=== PATIENT | male | born 1945 | race Caucasian/White ===

== ENCOUNTER 2019-10-06 20:35 | Observation (INO) | payer MEDICARE, OTHER, SELFPAY ==
--- NOTE | 2019-10-06 | DI.ECHO.S_ITS ---
[facility] +---------+ : : [address] : [address] : : : : [id number] : : : : Phone: [phone] Echocardiogram Report + + :Name: SHAUNA VILLALBA Study Date: 10/07/2019 Height: 69 in : :[facility] Weight: 195 lb : : Gender: Male BSA: 2.0 m2 : :: 1945 Age: 74 yrs BP: 147/90 mmHg: :Reason For Study: CVA : : Performed By: Ijeoma Menjivar : :Referring: TRIP AUGUSTIN : + + Interpretation Summary The left ventricle is normal in size, wall thickness, and systolic function without any focal wall motion abnormalities with the ejection fraction visually estimated to be 65-70%. Diastolic parameters suggest probable normal left ventricular diastolic function and normal filling pressures. The right ventricle is borderline dilated and right ventricular systolic function is normal. Pulmonary artery pressures cannot be estimated because of the lack of a measurable TR jet velocity but the IVC suggests a CVP of around 8 mmHg. The left atrium is mildly dilated while right atrial size is normal. The interatrial septum is intact with no Doppler evidence for an atrial septal defect and injection of contrast documented no interatrial shunt. There is no significant valvular heart disease. Procedure: A two-dimensional transthoracic echocardiogram with color flow and Doppler was performed. The study quality was technically adequate. There is no prior echocardiogram noted for this patient. The patient was in normal sinus rhythm during the exam. Left Ventricle: The left ventricle is normal in size, wall thickness, and systolic function without any focal wall motion abnormalities. The ejection fraction is estimated to be 65-70%. Diastolic parameters suggest probable normal left ventricular diastolic function and normal filling pressures. Right Ventricle: The right ventricle is borderline dilated. The right ventricular systolic function is normal. Atria: The left atrium is mildly dilated. Right atrial size is normal. The interatrial septum is intact with no evidence for an atrial septal defect. Injection of contrast documented no interatrial shunt. Mitral Valve: The mitral valve is grossly normal. There is no mitral regurgitation noted. Aortic Valve: The aortic valve is trileaflet. The aortic valve opens well. The peak aortic velocity is 1.6 m/sec. There is no aortic valve stenosis. No aortic regurgitation is present. Tricuspid Valve: The tricuspid valve is not well visualized, but is grossly normal. There is a trace or physiologic amount of tricuspid regurgitation. Pulmonary artery pressures cannot be estimated because of the lack of a measurable TR jet velocity but the IVC suggests a CVP of around 8 mmHg. Pulmonic Valve: The pulmonic valve is not well seen, but is grossly normal. There is no pulmonic valvular regurgitation. There is no significant valvular heart disease. Great Vessels: The aortic root is mildly dilated. The ascending aorta is mildly enlarged. The aortic arch is normal in size. The IVC is dilated (diameter is greater than 2.1 cm) yet it collapses greater than 50% with a sniff. This suggests a right atrial pressure of 8 mm Hg. Pericardium/ Pleura There is no pericardial effusion. There is no pleural effusion. MMode/2D Measurements & Calculations LVIDd: 5.1 cm Ao root diam: 3.9 cm LVIDs: 2.8 cm Aortic Jxn: 3.2 cm FS: 44.8 % asc Aorta Diam: 3.6 cm IVSd: 0.84 cm Ao Arch Diam (Prox Trans): 2.9 cm LVPWd: 0.99 cm LV ragland. diameter/BSA (cm/m^2): 2.5 LV sys. diameter/BSA (cm/m^2): 1.4 LA dimension: 3.3 cm RA long axis: 5.4 cm LA A2 area: 22.5 cm2 RA area: 19.5 cm2 LA A4 area: 23.7 cm2 RA vol: 60.4 ml LA length (vol): 5.4 cm RA : 29.5 ml/m2 LA vol: 83.8 ml IVC diam: 2.2 cm LA vol index: 41.0 ml/m2 Doppler Measurements & Calculations Ao V2 max: 161.3 cm/sec MV E max ricky: 117.2 cm/sec Ao V2 mean: 116.9 cm/sec MV A max ricky: 118.0 cm/sec Ao max P.4 mmHg MV E/A: 0.99 Ao mean P.0 mmHg Med Peak E' Ricky: 10.0 cm/sec Ao V2 VTI: 30.5 cm E/E' med: 11.7 Lat Peak E' Ricky: 9.1 cm/sec E/E' lat: 12.9 E/e' average: 12.3 MV dec time: 0.19 sec MV P1/2t: 55.2 msec PA V2 max: 87.3 cm/sec MV P1/2t max ricky: 115.8 cm/sec PA V2 mean: 61.1 cm/sec MVA(P1/2t): 4.0 cm2 PA mean P.7 mmHg PA Accel Time: 0.12 sec Reading Physician:BEVERLY
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
[2019-10-06 20:46] VITALS: BP 132/85; PULSE 102; RESP 15; TEMP 38.2; O2SAT 95
[2019-10-06 20:53] LABS: Add Manual Diff / Slide Review NO; Basophils Absolute Auto 0 /uL (0-100); Basophils Percent Auto 0.3 % (0-2); Eosinophils Absolute Auto 100 /uL (0-450); Eosinophils Percent Auto 0.9 % (2-4); Hematocrit 44.4 % (41-53); Hemoglobin 15.6 g/dL (13.5-17.5); Lymphocytes Absolute Auto 400 /uL (1100-4500); Lymphocytes Percent Auto 6.1 % (25-40); Mean Corpuscular HGB Conc 35.2 % (30-36); Mean Corpuscular Hemoglobin 32.9 PG (26-34); Mean Corpuscular Volume 93.5 fL (80-100); Monocytes Absolute Auto 400 /uL (0-900); Monocytes Percent Auto 6.9 % (3-14); Neutrophils Absolute Auto 5200 /uL (1500-7000); Neutrophils Percent Auto 85.8 % (50-75); Platelet Count 164 X10^3/uL (150-400); Red Blood Cell Count 4.75 X10^6/uL (4.5-5.9); Red Cell Distribution Width 13.4 % (11.6-14.8); White Blood Cell Count 6.1 X10^3/uL (4.5-11.0)
[2019-10-06 20:59] LABS: INR 1.1 (0.9-1.3); Prothrombin Time 12.4 SECONDS (10.1-12.7)
[2019-10-06 21:01] LABS: HEMOLYSIS < 15 (0-50)
[2019-10-06 21:02] LABS: PTT Partial Thromboplastin Tim 29 SECONDS (26.4-36.2)
[2019-10-06 21:05] LABS: Alanine Aminotransferase 24 IU/L (<50); Albumin 4.3 g/dL (3.5-5.0); Albumin Globulin Ratio 1.6 (1.0-2.8); Alkaline Phosphatase 64 U/L (38-126); Aspartate Aminotransferase 53 IU/L (17-59); BUN Creatinine Ratio 12.1 (6-22); Bilirubin Total 0.8 mg/dL (0.2-1.3); Blood Urea Nitrogen 17 mg/dL (9-20); Calcium 9.1 mg/dL (8.4-10.2); Carbon Dioxide 27 mmol/L (22-32); Chloride 100 mmol/L (98-107); Estimated Glomerular Filt Rate 49.3 mL/min (>60); Globulin 2.7 g/dL (1.7-4.1); Glucose 118 mg/dL (80-110); Lipase 96 U/L (23-300); Sodium 135 mmol/L (137-145)
[2019-10-06 21:06] LABS: Lactate (Lactic Acid) 1.5 mmol/L (0.7-2.1)
[2019-10-06 21:19] LABS: Procalcitonin 0.09 ng/mL (<0.5)
[2019-10-06 21:20] VITALS: BP 153/82; PULSE 91; RESP 12; O2SAT 94
[2019-10-06 21:20] LABS: Troponin I 0.023 ng/mL (0.01-0.034)
[2019-10-06 21:22] LABS: Acetaminophen < 10 ug/mL (10-30); Ethanol (ETOH) < 10 mg/dL; Salicylate < 1.0 mg/dL (<20)
[2019-10-06 21:35] LABS: Ammonia (NH3) < 9.0 umol/L (9-30)
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
[2019-10-06 22:09] VITALS: BP 162/84; PULSE 94; RESP 27; O2SAT 94
[2019-10-06 22:30] VITALS: BP 160/83; PULSE 101; RESP 22; O2SAT 99
--- NOTE | 2019-10-06 22:37 | PC.NURSE ---
Went through the pts belongings with him to make sure that we had all of it together. He has: a wallet, a separate card frederick, a set of keys, a medicine organizer, and a jacket as well as plaid sweater. Pt is wearing a yellow metal ring on his left ring finger. Pt states that he had a phone with him but neither him nor I could find one.
--- NOTE | 2019-10-06 23:26 | PC.NURSE ---
Addendum entered by Usha Quinteros R.N. 10/06/19 23:28: Pt Sarah, called at [phone] [facility] Thursday. Original Note: Rn attempted to reconcile medications pt unable to recall medications and dosages. Pt called and she is unaware of his medication names and dosages.
[2019-10-06 23:30] VITALS: BP 174/90; PULSE 106; RESP 20; TEMP 37.2; O2SAT 100
--- NOTE | 2019-10-06 23:48 | DI.MRI.S_ITS ---
PROCEDURE: MR STROKE Pre- and post-contrast brain MRI, non-contrast brain MR angiogram, pre- and postcontrast neck MR angiogram INDICATIONS: Altered mental status, rule out CVA TECHNIQUE: Brain: Noncontrast axial T1 spin echo, axial T2 fast spin echo, sagittal and axial FLAIR, coronal T2 fast spin echo, axial gradient echo, axial diffusion and ADC through the brain. After the administration of contrast, axial 3D VIBE of the cranial vasculature and brain. Brain MRA: Non-contrast 3-D time of flight MR angiogram, with multiple axwvqeu-viwkimvip-whqdphipbz (MIP) reformats performed. Neck MRA: Axial and sagittal TruFISP through the neck. Coronal dynamic MR angiogram during administration of contrast in the arterial and venous phases, with 3-dimenstional oihuekc-atwwxckce-bkyagixwdb (MIP) reformats constructed from subtraction images. COMPARISON: None. FINDINGS: Image quality: Excellent. BRAIN: CSF spaces: Ventricles are normal in size and shape. Basal cisterns are patent. No extra-axial fluid collections. Brain: No intracranial bleeds or mass effects. Pinto-white matter interface is normal. Diffusion weighted images show no acute ischemic insults. Brainstem appears normal. Normal intravascular flow voids are present. Mild volume loss. No abnormal intracranial enhancement. Skull and face: Calvarial marrow signal is normal. Orbits appear normal. Sinuses: Mild bilateral maxillary, ethmoid, frontal, and sphenoid sinus mucosal thickening. BRAIN MR ANGIOGRAM: Anterior circulation: Intracranial internal carotid arteries are normal in size and enhancement. The flow within the paired anterior cerebral arteries is normal and symmetric. The flow within the middle cerebral arteries is normal and symmetric. The anterior communicating artery is seen. No stenoses, occlusions, or aneurysms. Posterior circulation: The visualized portions of the vertebral arteries demonstrate normal caliber, and join to form a normal appearing basilar artery. Near origin of right posterior cerebral artery. The flow within the posterior cerebral arteries is normal and symmetric. No stenoses, occlusions, or aneurysms. NECK MR ANGIOGRAM: Carotids: Great vessels demonstrate a conventional anatomy as they arise from the aortic arch. The origins of the common carotid arteries appear patent. The calibers and courses of both common carotid arteries are normal. The bifurcation regions appear normal bilaterally. The internal carotid arteries demonstrate normal course and caliber. Posterior circulation: The origins of the vertebral arteries appear patent. More superior portions of both vertebral arteries demonstrate normal course and caliber, and join to form a normal appearing basilar artery. Miscellaneous: Subclavian arteries appear patent. Pre-contrast images through the neck show no soft tissue abnormalities. IMPRESSION: BRAIN MRI: 1. No acute process. No recent infarct. 2. Sinus disease. BRAIN MR ANGIOGRAM: Negative cerebral angiography. NECK MR ANGIOGRAM: 1. No significant stenosis in the internal carotid arteries. 2. No significant stenosis in the vertebral arteries. Dictated by: Melani Sood M.D. on 10/07/2019 at 11:43 Approved by: Melani Sood M.D. on 10/07/2019 at 12:00
[2019-10-07] VITALS (9 sets, daily range): BP systolic 104–157; BP diastolic 57–90; PULSE 77–96; RESP 13–22; TEMP 36.8–38.5; O2SAT 92–99; BMI 29.8
--- NOTE | 2019-10-07 | PC.NURSE ---
PT hiram Hollowayjuli contact phone number [phone].
[2019-10-07] MEDS: SODIUM CHLORIDE 0.9% 1,000 ML 75 ML IV ×2 (01:19→18:34)
[2019-10-07] MEDS: ASPIRIN EC 325 MG TABLET PO (01:21)
--- NOTE | 2019-10-07 01:38 | PC.ADMIT ---
Addendum entered by Mariya Eddy R.N. 10/07/19 06:54: Bladder scanned again for estimated 468ml, then voided 100ml. called, patient not confused at baseline, came down with cold around Thursday and took over the counter cold medication yesterday. Displayed some confusion yesterday before he left [place] after 1515 after a nap. reports no walker or cane at baseline, has had some instability due to Parkinson's Shuffle but has not required assisting device. Addendum entered by Mariya Eddy R.N. 10/07/19 03:33: Patient was attempting to exit the bed, stated I need to use the bathroom, gave patient a urinal and he voided 30ml. Bladder scan showed estimated 300ml retained. Will notify hospitalist. Original Note: [id number] Admission Note: The patient,Radu Ryan,74 y/o, was given written information regarding hospital policies, unit procedures and contact persons. Patient's smoking status: Never smoker. Vital Signs - 8 hr 10/06/19 20:46 10/06/19 21:20 10/06/19 22:09 Temperature 100.7 F H Pulse Rate 102 H 91 H 94 H Respiratory Rate 15 12 27 H Blood Pressure 132/85 Blood Pressure [Left Arm] 153/82 H 162/84 H Pulse Oximetry 95 94 94 10/06/19 22:30 10/06/19 23:30 10/07/19 00:00 Temperature 99.0 F Pulse Rate 101 H 106 H 96 H Respiratory Rate 22 20 13 Blood Pressure Blood Pressure [Left Arm] 160/83 H 174/90 H 157/76 H Pulse Oximetry 99 100 99 10/07/19 00:35 Temperature 101.3 F H Pulse Rate 96 H Respiratory Rate 18 Blood Pressure 150/77 H Blood Pressure [Left Arm] Pulse Oximetry 97 Patient arrived on floor from ED by stretcher accompanied by MISSILE TRACKING TECHNICIAN. Transferred to bed via slider board. Patient is alert to self and that he's in the hospital but not which hospital or why but does recall falling yesterday. Patients has difficulty responding to questions in a linear fashion, when asked for a code word patient started saying five trailed off, when asked if he wanted it to be just one number he responded yes like 'ph' um and then asked is that a word?. When asked about diet at home, patient stated I eat a lot of blueberries. My son's have different surnames. All kinds of berries really. Asked patient if he always has difficulty with finding words, patient denies that this is his baseline. Patient appeared to fall asleep during admission but would arouse easily. Patient denied pain, nausea, vomiting, has a dry cough and wheezing in anterior and posterior upper lobe specifically when laying on his side. Patient's belongings were vouchered and put in the safe, a small case of loose medications was labeled and put in the night pharmacy. Patient is a high fall risk due to recent fall, mentation, and weakness, bed alarm in on and functioning, demonstrated use of call light and patient has used appropriately, patient within view of nursing station.
[2019-10-07] MEDS: CARBIDOPA-LEVODOPA 25/100 TABLET 1 EACH PO ×2 (02:16→18:07)
--- NOTE | 2019-10-07 02:32 | PM.HP.1 ---
History of Present Illness History of Present Illness Date Patient Seen: 10/06/19 Time Patient Seen: 22:50 Chief complaint: Confusion, LKW [id number] Narrative: Mr. Radu Garvin this 74-year-old right-handed male with a history significant for parkinsonism hypertension and hypogonadism that presents to the hospital by EMS with altered mental status. The patient is a poor historian and unable to effectively relate history of events or recall information. Reportedly the patient left his home in Thursday on [facility] this morning. From conversation by the ER provider with the patient's the patient was more confused this morning when he left home to visit his son in [place]. The patient states he was driving around looking at houses but did not realize he was in [place]. He got out of his car with his dog who pulled him over falling to the ground, bystanders called EMS. Patient denies hitting his head or loss of consciousness, no neck or back pain. The patient has difficulty describing any of the events of today and may remember 1 facet but is unable to recall further. When asked about getting on the very he asks ?was that today??. Has difficulty with dates and times and is unable to recall today's date. The patient does complain of a bitemporal headache Dona states ?is not bad?. He reports no visual changes, no dizziness, no ataxia but adds that he felt stiff and his feet felt like cement. He has had no nausea vomiting and denies diaphoresis. He recalls no recent illness and denies fevers or chills. He denies complaints of chest pain or palpitations, shortness of breath cough or wheezing. Has no abdominal pain, changes in bowel or bladder habits. Upon arrival the ER the patient is febrile with temperature of 100.7?, tachycardic at 102, blood pressure 132/85, respirations 15 saturating 95%. The patient was evaluated with a CT scan of the head which finds no acute intracranial pathology have finds chronic microvascular ischemic changes. He had a chest x-ray taken which was negative with no evidence of pneumonia. On laboratory analysis he has white count of 6.1, hemoglobin of 15.6 and hematocrit of 44.4 with platelets 164. He has lactic acid of 1.5 and a troponin of 0.023. Electrolytes are within normal limits however he does have a BUN of 17 and a creatinine of 1.4 and nonfasting glucose of 118. His LFTs with normal limits as is his lipase at 96 and ammonia less than 0.9. Tox screen is negative for salicylates Tylenol or alcohol. The patient is admitted to the Medicine service for fever with unknown source, altered mental status, possible CVA. Patient History Medical History (Updated 10/07/19 @ 03:09 by MARGARITA Juarez) Hypertension (Acute) Hypogonadism (Acute) Parkinsons disease (Acute) Surgical History (Updated 10/07/19 @ 03:09 by MARGARITA Juarez) History of tonsillectomy (Acute) Family & Social History Family History (Updated 10/07/19 @ 03:10 by MARGARITA Juarez) Father Hypertension Stroke Mother Cancer Brother Asthma Social History: household members spouse Prior Living Arrangements House Safety & Behavioral: Feels Safe in Current Yes Environment Been Physically Hurt or No Threatened By a Person Suicidal Ideation Description None Suicide Plan Description No Plan Tobacco & Substance use: Smoking Status Never smoker alcohol intake frequency a few times a month Substance Use Type does not use Comment: The patient lives in a single family home on [facility] with his . He finds a history is father having hypertension and stroke in his mother having a cancer the blood and brother with asthma. Smoking: The patient denies ever using tobacco products. Alcohol: Patient endorses drinking alcohol approximately once per week. Substance use: Patient denies recreation pharmaceuticals, herbal or cannabis products. Advanced directives: The patient is unclear as to advanced directives. Upon clarification he states his desire to be FULL CODE a has to be surrogate decision maker. Meds Home Medications and Allergies Home Medications Medication Instructions Recorded Confirmed Type CHOLECALCIFEROL (VITAMIN D3) 5,000 iu PO Q DAY #0 08/06/11 History (VITAMIN D) Coenzyme Q10 (#COQ(10)10) 100 mg PO Q DAY #0 08/06/11 History MELATONIN (#MELATONIN) 1 mg PO Q DAY #0 08/06/11 History PRASTERONE (DHEA) (#DHEA) 40 mg PO Q DAY #0 08/06/11 History Pregnenolone (#PREGNENOLONE) 50 mg PO Q DAY #0 08/06/11 History TESTOSTERONE (#TESTOSTERONE) 150 mg TOPICAL Q DAY #0 08/06/11 History [[facility] ESSENTIAL] BID #0 08/06/11 History [[facility] MENS FORMULA] Q DAY #0 08/06/11 History anastrozole 1 mg PO QDAY #0 08/06/11 History carbidopa-levodopa 1 tab PO BEDTIME 10/07/19 10/07/19 History carbidopa-levodopa See Rx Instructions .ROUTE .COMPLEX 10/07/19 10/07/19 History levothyroxine 50 mcg PO DAILY 10/07/19 10/07/19 History pramipexole 0.5 mg PO TID 10/07/19 10/07/19 History Allergies Allergy/AdvReac Type Severity Reaction Status Date / Time No Known Drug Allergies Allergy Verified 10/06/19 20:46 Review of Systems Review of Systems ROS Unobtainable: All systems reviewed & are unremarkable except as noted in HPI and below Exam Vital Signs (past 8 hours): - 10/06/19 20:46 10/06/19 21:20 10/06/19 22:09 Temperature 100.7 F H Pulse Rate 102 H 91 H 94 H Respiratory Rate 15 12 27 H Blood Pressure 132/85 Blood Pressure [Left Arm] 153/82 H 162/84 H Pulse Oximetry 95 94 94 10/06/19 22:30 10/06/19 23:30 10/07/19 00:00 Temperature 99.0 F Pulse Rate 101 H 106 H 96 H Respiratory Rate 22 20 13 Blood Pressure Blood Pressure [Left Arm] 160/83 H 174/90 H 157/76 H Pulse Oximetry 99 100 99 10/07/19 00:35 Temperature 101.3 F H Pulse Rate 96 H Respiratory Rate 18 Blood Pressure 150/77 H Blood Pressure [Left Arm] Pulse Oximetry 97 Oxygen Delivery Method Room Air Oxygen Flow Rate 0 Narrative Exam Narrative: GENERAL APPEARANCE: well developed, well nourished, restless and somewhat uncomfortable appearing. HEENT: Atraumatic, symmetrical facies, PERRLA, conjunctiva clear, no ptosis, EOMs intact, staccato like eye movement in all axes, no sinus tenderness to percussion, no rhinorrhea, mucous membranes are moist and pink without lesions or exudate. NECK/THYROID: neck supple, no JVD, no carotid bruit, no thyromegaly, trachea midline. LYMPH NODES: no cervical or supraclavicular lymphadenopathy. SKIN: Anthon, warm and dry, no suspicious lesions, no rashes, ulcerations or petechiae. HEART: regular rate and rhythm, S1-S2, 1/6 systolic murmur, brisk capillary refill, 2+ edema right leg, trace to 1+ edema left leg. LUNGS: clear to auscultation bilaterally, no coarseness crackles or wheezing, dry nonproductive cough present on deep inspiration CHEST: Symmetrical movement, no accessory muscle use, no pain to AP and lateral compression. ABDOMEN: Soft, round, no abdominal tenderness, no guarding or peritoneal signs, no organomegaly, no flank or suprapubic tenderness, active bowel tones. EXTREMITIES: Tremors of all extremities, strength is 5/5 and symmetrical, no extremity drift on exam, no deformities or joint effusions. NEUROLOGIC: Awake alert and oriented to person confused to place and time, impaired recall, no facial drooping cranial nerves II-XII grossly intact, sensation intact to light touch without extinction, patient will initially respond to question and trail off, inattention. PSYCH: Non linear thought process, cooperative, appropriate with stable behavior Objective Labs Result Diagrams: 10/06/19 20:40 10/06/19 20:40 Labs: Laboratory Results - last 24 hr 10/06/19 10/06/19 10/06/19 20:40 20:40 20:40 WBC 6.1 RBC 4.75 Hgb 15.6 Hct 44.4 MCV 93.5 MCH 32.9 MCHC 35.2 RDW 13.4 Plt Count 164 Neut % (Auto) 85.8 H Lymph % (Auto) 6.1 L [place] % (Auto) 6.9 Eos % (Auto) 0.9 L Baso % (Auto) 0.3 Neut # (Auto) 5200 Lymph # (Auto) 400 L [place] # (Auto) 400 Eos # (Auto) 100 Baso # (Auto) 0 PT 12.4 INR 1.1 APTT 29 Sodium 135 L Potassium 4.0 Chloride 100 Carbon Dioxide 27 BUN 17 Creatinine 1.40 H Estimated GFR 49.3 L BUN/Creatinine Ratio 12.1 Glucose 118 H Lactate Calcium 9.1 Total Bilirubin 0.8 AST 53 ALT 24 Alkaline Phosphatase 64 Ammonia Troponin I 0.023 Total Protein 7.0 Albumin 4.3 Globulin 2.7 Albumin/Globulin Ratio 1.6 Lipase 96 Procalcitonin TSH Salicylates < 1.0 Acetaminophen < 10 L Ethyl Alcohol < 10 10/06/19 10/06/19 10/06/19 20:40 20:40 20:40 WBC RBC Hgb Hct MCV MCH MCHC RDW Plt Count Neut % (Auto) Lymph % (Auto) [place] % (Auto) Eos % (Auto) Baso % (Auto) Neut # (Auto) Lymph # (Auto) [place] # (Auto) Eos # (Auto) Baso # (Auto) PT INR APTT Sodium Potassium Chloride Carbon Dioxide BUN Creatinine Estimated GFR BUN/Creatinine Ratio Glucose Lactate 1.5 Calcium Total Bilirubin AST ALT Alkaline Phosphatase Ammonia < 9.0 L Troponin I Total Protein Albumin Globulin Albumin/Globulin Ratio Lipase Procalcitonin 0.09 TSH Salicylates Acetaminophen Ethyl Alcohol 10/06/19 20:40 WBC RBC Hgb Hct MCV MCH MCHC RDW Plt Count Neut % (Auto) Lymph % (Auto) [place] % (Auto) Eos % (Auto) Baso % (Auto) Neut # (Auto) Lymph # (Auto) [place] # (Auto) Eos # (Auto) Baso # (Auto) PT INR APTT Sodium Potassium Chloride Carbon Dioxide BUN Creatinine Estimated GFR BUN/Creatinine Ratio Glucose Lactate Calcium Total Bilirubin AST ALT Alkaline Phosphatase Ammonia Troponin I Total Protein Albumin Globulin Albumin/Globulin Ratio Lipase Procalcitonin TSH 0.80 Salicylates Acetaminophen Ethyl Alcohol Assessment & Plan Assessment & Plan narrative: This is a 74-year-old male patient who is independent at baseline and presents today with altered mental status confusion and apparent amnesic to events earlier today. 1. Acute metabolic encephalopathy, possible CVA, present on admission, active -per ER providers conversation with the patient's the patient was smoke confused on departing his home today. On the ER assessment last known normal was approximately 4:30 p.m. -patient is unable to recall events of earlier today and does not recall getting on the [place] from [facility] to [place]. -CT of the head is negative for acute intracranial processes, finding of chronic microvascular ischemic changes. -patient does complain of bitemporal headache without nausea vomiting, no visual changes, no hemiparesis or ataxia. -ordered aspirin 325 mg now and 81 mg daily. -ordered lipid panel, atorvastatin 20 mg daily -will obtain MRI stroke protocol in the morning. -ordered echocardiogram. 2. Parkinson's disease, chronic, present on admission, active -patient does present with cognitive impairment but per report had not developed dementia secondary to his Parkinson's. -patient is tremulous in all extremities but is able to complete rwjoim-np-fchd and lnvn-bj-hhdz maneuvers. -patient has his medications with him in a pill minder box. Will send to pharmacy in the morning for identification and clarification of dosages -clarification of patient's med regimen was obtain by nursing in the ER, will continue patient's carbidopa levodopa and pramipexole per his home regimen as identified and will request medical records from [facility]. -patient states his neurologist is Carol Ann Phillips at [facility] in [place]. Will contact for records for the 3 last visits. 3. Acute upper respiratory infection, present on admission, active -patient with fever on admission 100.7 and later on the floor 101.3. -patient complains of a cough but denies wheezing or shortness of breath. Reports no fevers or chills. -will obtain respiratory PCR. -Tylenol as needed for fever 4. Possible benign prostatic hypertrophy, active -as ER staff was seeking to clarified patient medications identified doxazosin 8 mg has a home medication. -will obtain medical records from [facility] in attempt to clarify patient's medications. -patient attempted to void, produced only 30 cc. Bladder scan finds a residual approximately 300 cc. -will monitor urination, straight cath as necessary, clarify medications. The patient is admitted to the hospital due to severity of her symptoms, risk of complications and adverse events. The patient is admitted as observation with expected length of stay to be less than 2 midnights. Time Spent With Patient Time with patient: Greater than 35 minutes Scores GCS Rosaura coma scale eye opening: Spontaneous [place] coma scale verbal response: Confused [place] coma scale motor response: Obey commands Rosaura coma scale total score: 14 ABCD2 Age >= 60 years: yes Initial BP. Either SBP >= 140 or DBP >= 90.: no Clinical features of the TIA: other symptoms Duration of symptoms: >= 60 minutes History of diabetes: no ABCD2 Score: 3 NIHSS Level of Conciousness: Alert, keenly responsive Ask month/age: Answers one question correctly, intubated follow commands Open/close eyes, close hand: Performs both tasks correctly Best gaze horizontal: Normal Visual dodson: No visual loss Facial palsy: Normal symetrical movement Left arm drift: No drift for full 10 sec Right arm drift: No drift for full 10 sec Left leg drift: No drift for full 5 sec Right leg drift: No drift for full 5 sec Limb ataxia: Absent Sensory on face/arms/legs: Normal, no sensory loss Best language: No aphasia, normal Dysarthria: Normal Extinction or inattention: Visual, tactile, auditory, spacial or personal inattention to stimuli Total NIH Stroke scale score: 2 Quality VTE Deep Vein Thrombosis/Pulmonary Embolism Present on Admission: No
[2019-10-07 03:37] LABS: Bacteria Urine None Seen
[2019-10-07 03:38] LABS: Appearance Urine UA CLEAR; Bilirubin Urine UA NEGATIVE (NEGATIVE); Color Urine UA YELLOW; Glucose Urine UA NEGATIVE (Negative); Ketones Urine UA TRACE (NEGATIVE); Leukocyte Esterase Urine UA NEGATIVE (NEGATIVE); Nitrite Urine UA NEGATIVE (Negative); Occult Blood Urine UA 3+ (Negative); Protein Urine UA TRACE (Negative); Specific Gravity Urine UA 1.015 (1.000-1.035); pH Urine UA 7.5 (4.5-8.0)
[2019-10-07 03:48] LABS: Culture Indicated Urine Cult Not Indicated; RBC Urine 30-100/HPF (0-5/HPF); Sperm Urine OCCASIONAL; Squamous Epithelial Cell Urine 0-1 /HPF (0-5/HPF); WBC Urine 0-1/HPF (0-5/HPF)
[2019-10-07] MEDS: LEVOTHYROXINE 50 MCG TABLET PO (05:48)
[2019-10-07 05:50] LABS: BUN Creatinine Ratio 14.2 (6-22); Blood Urea Nitrogen 17 mg/dL (9-20); Calcium 8.4 mg/dL (8.4-10.2); Carbon Dioxide 24 mmol/L (22-32); Chloride 100 mmol/L (98-107); Cholesterol 150 mg/dL (140-199); Estimated Glomerular Filt Rate 58.9 mL/min (>60); Glucose 108 mg/dL (80-110); HDL Cholesterol 42 mg/dL (40-60); HEMOLYSIS 23 (0-50); LDL Cholesterol Calculated 98 mg/dL (<100); Magnesium 1.7 mg/dL (1.6-2.3); Sodium 132 mmol/L (137-145); Triglycerides 50 mg/dL (35-150)
[2019-10-07 06:10] LABS: Add Manual Diff / Slide Review NO; Basophils Absolute Auto 100 /uL (0-100); Basophils Percent Auto 0.9 % (0-2); Eosinophils Absolute Auto 0 /uL (0-450); Eosinophils Percent Auto 0.2 % (2-4); Hematocrit 42.9 % (41-53); Hemoglobin 15.2 g/dL (13.5-17.5); Lymphocytes Absolute Auto 600 /uL (1100-4500); Lymphocytes Percent Auto 10.5 % (25-40); Mean Corpuscular HGB Conc 35.5 % (30-36); Mean Corpuscular Hemoglobin 33.1 PG (26-34); Mean Corpuscular Volume 93.2 fL (80-100); Monocytes Absolute Auto 500 /uL (0-900); Monocytes Percent Auto 8.6 % (3-14); Neutrophils Absolute Auto 4600 /uL (1500-7000); Neutrophils Percent Auto 79.8 % (50-75); Platelet Count 146 X10^3/uL (150-400); Red Blood Cell Count 4.61 X10^6/uL (4.5-5.9); White Blood Cell Count 5.8 X10^3/uL (4.5-11.0)
[2019-10-07 06:40] LABS: Troponin I 0.049 ng/mL (0.01-0.034)
[2019-10-07 06:44] LABS: Thyroid Stimulating Hormone 0.45 uIU/mL (0.47-4.68)
[2019-10-07] MEDS: PRAMIPEXOLE 0.25 MG TABLET 0.5 MG PO ×4 (09:14→18:07)
[2019-10-07] MEDS: ASPIRIN EC 81 MG TABLET PO (09:14)
[2019-10-07] MEDS: HEPARIN 5,000 UNIT/ML VIAL 5000 UNIT SUBCUT ×2 (09:14→21:39)
[2019-10-07] MEDS: CARBIDOPA-LEVODOPA 25/100 TABLET 2 EACH PO ×2 (09:16→12:16)
--- NOTE | 2019-10-07 13:27 | CM.DANOTE ---
Discharge Planning/Care Management DCP: assessment: initiated. Case received this morning and discussed in Team Rounds. Pt is a 74 luciana old male who admitted last night to care of hospitalist team. Dr. Best noted his full dx and POC were very much in process. MRI, ECHO and labs were pending. Admission status: in review: per JAYANT Cantu Payer: Medicare and [employer]. Dr. Best notes pt carries a dx of Parkinson's disease which further complicates his case. P: Discussed caseload and this case with DCP/JOE Gilmore at noon: she readily agreed to see pt to continue the DCPlanning assessment process. Advanced directive, confirm from FAMILY Start: 10/07/19 01:07 Freq: Q24H Status: Active Protocol: Document 10/07/19 09:00 [facility] (Rec: 10/07/19 10:44 [facility] [id number]) Advance Directive, confirm on record Time 10:44 Person contacted patient Copy received No CM Discharge Assessment Start: 10/07/19 13:26 Freq: Status: Active Protocol: Document 10/07/19 13:27 ITV (Rec: 10/07/19 13:27 ITV [id number]) Discharge Planning Assessment Advance Directives? Yes History Provided By Medical Record Prior Living Arrangements House Household Members spouse Review Status In Process
--- NOTE | 2019-10-07 13:37 | CM.DPNOTE ---
Initial D/C planning note. MANNEQUIN MOLDER reviewed chart. PCP: Dr. Barillas, Thursday. Payor: Medicare, [facility] Out of [facility]. Pt was admitted yesterday after presenting to the ER with altered mental status, fever, and possible CVA. He is being assessed for possibility of flu, CT was negative for acute intracranial processes. [place] here, and broke her arm in 2-places. She states that her adult son lives with them, and between the them both that they do not need any additional support or resources in the home at the time of discharge. They decline the need for Home Health or any DME. Pt and express feeling hopeful that he will be discharged within the next day. Care management will continue to monitor d/c plan. Discharge Planning/Care Management Advanced directive, confirm from FAMILY Start: 10/07/19 01:07 Freq: Q24H Status: Active Protocol: Document 10/07/19 09:00 [facility] (Rec: 10/07/19 10:44 [facility] [id number]) Advance Directive, confirm on record Time 10:44 Person contacted patient Copy received No CM Discharge Assessment Start: 10/07/19 13:26 Freq: Status: Active Protocol: Document 10/07/19 13:27 ITV (Rec: 10/07/19 13:27 ITV [id number]) Discharge Planning Assessment Advance Directives? Yes History Provided By Medical Record Prior Living Arrangements House Household Members spouse Review Status In Process Document 10/07/19 13:33 DPL (Rec: 10/07/19 13:37 DPL [id number]) Discharge Planning Assessment Assigned Visitor Services Specialist Deirdre Alfredce-Laws, [facility] Advance Directives? Yes History Provided By Medical Record Has Patient been admitted in last 30 No days? Prior Living Arrangements House Household Members spouse Type of transporation used prior to Drives own vehicle admit Independent with ADL's Yes Is patient alert and oriented? Yes Comment Pt and state that he is not going to need additional assistance once discharged home, and that his and stepson will be able to manage any continuing care needs that he may have. Caregiver for Another No Comment N/A Comment N/A Comment Pt/ deny any anticipated discharge needs at this time. Barriers to Discharge No Discharge Plan Home Additional Comment N/A Review Status In Process
[2019-10-07] MEDS: CARBIDOPA-LEVODOPA ER 50/200 TABLET 0.5 EACH PO ×4 (13:41→21:38)
--- NOTE | 2019-10-07 13:58 | ST.IP.CME ---
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 Best Reason for Referral encephalopathy vs CVA Evaluation Assessment Type SLUMS Past Medical History Patient History Mr. Radu Garvin this 74- year-old right-handed male with a history significant for parkinsonism hypertension and hypogonadism that presented yesterday to the hospital by EMS with altered mental status. The patient is a poor historian and unable to effectively relate history of events or recall information. Reportedly the patient left his home in Thursday on [facility] this morning. From conversation by the ER provider with the patient's the patient was more confused this morning when he left home to visit his son in [place]. The patient states he was driving around looking at houses but did not realize he was in [place]. He got out of his car with his dog who pulled him over falling to the ground, bystanders called EMS. Oral Motor Examination Oral Motor Exam Completed Informal observation indicated OM WNL Subjective Subjective Pt was in bedside chair finishing lunch. Pt was agreeable to assessment. - Informal Assessment Receptive Language Normal Yes Expressive Language Normal Yes Cognition Normal No: Pt unable to recall events of yesterday prior to [place] Assessment Findings pt did not present with overt s/sx aphasia. He was able to label items in the room, his 's name, the time, where he lives, his addresses and some of the events from yesterday. He was following directions, answered questions within a reasonable time and appeared to understand at a conversational level. Formal Assessment Standardized Test SLUMS Administration Complete Raw Score 14/30 (Dementia) - Cognition Orientation Skill Level Mildly Impaired Comment Knew the date, time, [facility], his addresses Attention Skill Level Mildly Impaired Divergent Naming Skill Level Moderately Impaired Comment could name 11 animals but could only recall 2/5 objects listed earlier Auditory Math Skill Level WFL Clock Drawing Skill Level Severely Impaired Comment no hour markers, hands of clock and time in error - Memory Short Term Memory Skill Level Moderately Impaired Immediate Recall Skill Level WFL Word Recall Skill Level Moderately Impaired Story Recall Skill Level Severely Impaired Long-Term Memory Comment amnesic for events prior to getting to [employer]; - Findings Cognitive/Memory Impressions Pt was able to recall the events yesterday after he was driving around [employer]. He did not recall where he started from, [place] ferry or that he was supposed to be on his way to [place] to see his son. He was oriented x5. He was able to compute mental math and repeat 3/3 number series. He could not recall more that 2/5 items listed earlier, he was unable to put hour markers on the clock face. When asked to try, he reported he did not know what an hour marker is. His clock face had numerous errors . Story recall was scored 0/8. The pt's score was 14/30, which is below his reported baseline. Recommendations Recommendations 1)Repeat SLUMS in a day or 2 to determine improvement in cognitive skills. 2)Cognitive therapy while inpatient and/or after discharge. Treatment Goals Short Term Goals Pt will be able to construct a clock face independently without cues demonstrating improved executive functioning skills. Pt will be able to answer 3 questions after listening to a short paragraph without assistance. Referrals Suggested Primary Care Physician Total Time Full Evaluation Time 100
--- NOTE | 2019-10-07 14:30 | PT.IIE ---
This is to certify that I have reviewed this documentation and is involved with this pt's care. Surgical History (Last Updated 10/07/19 @ 03:09 by MARGARITA Juarez) History of tonsillectomy (Acute) Medical History (Last Updated 10/07/19 @ 03:09 by MARGARITA Juarez) Hypertension (Acute) Hypogonadism (Acute) Parkinsons disease (Acute) Physical Therapy Inpatient Evaluation/Re-Eval M1 PT/OT-IP Prior Functional Status Start: 10/07/19 17:41 Freq: NEEDED Status: Active Protocol: Document 10/07/19 14:30 JG (Rec: 10/07/19 18:05 [id number]) Medical Review Prior Functional Status Medical History Reviewed Yes Diet/Fluid Consistency Regular Communication Per pt history in EMR, pt's states that pt was confused prior to leaving home Thursday morning. Mobility and Gait Pt reports I mobility and gait but would often use furniture within the house for support. Activities of Daily Living and IADL's Pt reports I with ADLs and IADLs. Prior Functional Level (Other details) Pt is a poor historian and was confused during IE so reported PLOF may not be accurate. Pt was able to drive prior to admission. Social History Household Members spouse,children Living Arrangements House Number of Floors (Floors) One Floor Number of Stairs To Enter/Railing? 1 JOHN (no railing) Home Environment Standard Height Toilet,Tub/ Shower Home Equipment Front Wheel Walker,Hand Held Shower,Grab Bars In Shower Employment Status Retired Additional Social History Comment Pt is a poor historian and may not have provided an accurate social hx. Pt reports that he lives at home on [facility] in one-story house with his and adult son. Pt has limited home equipment. M2 PT-IP Current Condition Start: 10/07/19 17:41 Freq: NEEDED Status: Active Protocol: Document 10/07/19 14:30 JG (Rec: 10/07/19 18:05 [id number]) Physical Therapy Current Condition Current Condition Evaluation Date 10/07/19 Treatment Diagnosis Acute metabolic encephalopathy , AMS, difficulty walking, limited mobility Onset Date 10/06/19 Precautions Other Precautions Droplet precautions Weight Bearing Status Weight Bearing Status Full Weight Bearing M3 PT-IP Subjective Start: 10/07/19 17:41 Freq: NEEDED Status: Active Protocol: Document 10/07/19 14:30 JG (Rec: 10/07/19 18:05 JG [id number]) Subjective Physical Therapy Visit Type Type Initial Evaluation Visit Start Time 14:30 Visit Stop Time 14:57 Total Visit Minutes 27 Notes IE led by SPT Ariadna, supervised by PT Toshia 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 Pt reports that he is very tired. Patient Goals Return home M4 PT-IP Mobility and Gait Start: 10/07/19 17:41 Freq: NEEDED Status: Active Protocol: Document 10/07/19 14:30 JG (Rec: 10/07/19 18:05 JG [id number]) PT-Bed Mobility Assessment Rolling Type of Rolling Roll to Left Level of Assist Standby Assistance Supine to Sit Supine to Sit Minimal Assistance Sit to Supine Sit to Supine Standby Assistance Scooting Scooting to Edge of Bed Contact Guard Assistance Scooting Up and Down in Bed Standby Assistance PT-Transfer Assessment Sit to and From Stand Sit to and from Stand Minimal Assistance,Use of Upper Extremities Equipment Transfer Assistive Device Gait Belt,Front Wheeled Walker Orthotic/Prosthetic Devices or Brace: No Transfers Transfer Destination Bed Transfer Technique ambulate with FWW Transfer Ability Level of Assist Minimal Assistance,Use of Upper Extremities Comments Mobility Comments Pt in bed upon assessment. Pt able to sit up but required multiple tries and relied on momentum for supine to sit. Pt then required CGA for safety to scoot to EOB. Pt was SOB after sitting up. Vitals at EOB BP 149/99, HR 78, 94% O2. Pt denied feeling dizzy or nauseous. Pt required min A and mod cuing to use UE support on bed to stand up. After ambulating around room pt required min Daniele sit and was SBA for sit to supine. Pt is impulsive and required mod cuing throughout session to follow directions. Pt left sleeping in bed with call light and needs within reach, bed alarmed for safety. Gait Assessment Gait Gait Assistance Required: Minimum Assistance Distance (Feet) 15 Able to Maintain Weight Bearing Status Yes During Gait Assistive Devices Assistive Device Gait Belt,Front Wheeled Walker Orthotic/Prosthetic Devices or Brace: No Gait Deviations General Gait Pattern Decreased Stride Length, Decreased Feet Clearance, Festinating,Flexed Trunk, Narrow Based Gait,Step-to Gait Factors Limiting Gait Function Factors Limiting Gait Function Decreased Activity Tolerance, Decreased Strength,Difficulty Following Directions, Incoordination,Poor Balance, Poor Safety Awareness Comments Gait Comments Pt ambulated around room with FWW min A with max cuing for safety. Pt ambulates with festinating gait pattern and is impulsive during ambulation . During initial ambulation pt had mild LOB and required min A to correct. Pt required max cuing to slow down and take larger steps as well as for walker management. Stair Climbing Assessment Comments Stair Climbing Comments not assessed PT-Balance Assessment Sitting Balance and Reactions Static Sitting Balance Ability Fair Dynamic Sitting Balance Ability Fair Standing Balance and Reactions Static Standing Balance Ability Fair Dynamic Standing Balance Ability Fair Device Used FWW M5 PT-IP Objective Assessments Start: 10/07/19 17:41 Freq: NEEDED Status: Active Protocol: Document 10/07/19 14:30 JG (Rec: 10/07/19 18:05 [id number]) Orientation Orientation/Cognition Level of Alertness Confusional State Orientation Name,Place Language Function Ability No Deficits Noted Safety Awareness Decreased Safety Awareness Memory Description Short Term Impaired Comments Pt was confused during session and demonstrates very poor safety awareness. Pt is impulsive and requires max cuing for safety. Gross Range of Motion Upper Extremity ROM Assessment Within Functional Limits Lower Extremity ROM Assessment Within Functional Limits Strength Upper Extremity Strength Assessment Bilaterally Impaired Lower Extremity Strength Assessment Bilaterally Impaired Comments Strength Comments 4/5 throughout Coordination Assessment Gross Coordination Gross Coordination Impaired Assessment Finger to Nose Test Minimal Impairment Pronation/Supination Test Normal Performance Foot Tapping Test Minimal Impairment Heel on Dawson Test Minimal Impairment Sensation Assessment Sensation Gross Sensation WNL M6 PT-IP Treatment Start: 10/07/19 17:41 Freq: NEEDED Status: Active Protocol: Document 10/07/19 14:30 JG (Rec: 10/07/19 18:05 [id number]) Physical Therapy Treatment Education Education Provided Safety M7 PT-IP Assessment and Plan Start: 10/07/19 17:41 Freq: NEEDED Status: Active Protocol: Document 10/07/19 14:30 JG (Rec: 10/07/19 18:05 [id number]) PT Summary Assessment and Plan Potential Rehabilitation Potential Good Status of Condition at Evaluation Evolving Summary Impairments Strength,Balance,Coordination, Tone,Cognition,Bed Mobility, Transfers,Gait,Activity Tolerance Assessment Summary Pt is 74 yo male presenting to hospital with AMS and hx of PD. Pt was confused during assessment and demonstrating high impulsivity during session. Pt required max cuing throughout session for safety . Pt required CGA for majority of bed mobility but required min A for supine to sit as well as transfers and ambulation. Pt also had LOB during ambulation and required min A to correct as well as max cuing to prevent further LOB. Pt will require 24/7 assist upon d/c d/t poor safety awareness and high levels of cuing needed for safety. d/c recommendation will depend on pt's family's ability to provide assistance. If they are unable to provide 24/7 assist and high level of cuing pt requires, pt will benefit from d/c to SNF for improved safety. Will cont to assess. Goals Bed Mobility Goal Independent Transfer Goal Standby Assistance,Front Wheeled Walker Gait Goal Standby Assistance,Front Wheel Walker Gait Distance 100 Other Goals Ascend/descend 1 step with FWW and CGA Days to Meet Goals 10 Frequency of Treatment Frequency Of Treatment Once a Day Treatment Plan Physical Therapy Treatment Plan Bed Mobility Training,Transfer Training,Gait Training, Therapeutic Exercise,Balance Retraining,Post Op Education, Discharge Planning, Neuromuscular Re-ed, Coordination Retraining Recommendations To Nursing Amount of Assist Needed 1 Person Assist Discharge Recommendations PT Discharge Recommendations SNF Rehab
[2019-10-07 14:36] LABS: Influenza A and B by PCR Rapid Negative (Negative)
[2019-10-07 16:05] LABS: Creatine Kinase 473 U/L (55-170)
[2019-10-07 16:18] LABS: Troponin I 0.034 ng/mL (0.01-0.034)
[2019-10-07 16:21] LABS: CKMB % Relative Index 0.7 % (1.5-5.0)
--- NOTE | 2019-10-07 17:01 | OT.IP.TRT ---
Occupational Therapy Treatment Note M3 OT- IP Subjective and Pain Start: 10/07/19 17:00 Freq: Status: Active Protocol: Document 10/07/19 17:01 [facility] (Rec: 10/07/19 17:01 [facility] [id number]) OT- Subjective Occupational Therapy Visit Type Type Patient Unavailable Notes Physician talking to pt , therefore to see pt tomorrow for OT eval.
--- NOTE | 2019-10-07 17:24 | PM.PN.1 ---
Subjective Subjective Date Patient Seen: 10/07/19 Interval history: Radu Ryan is a 74-year-old male with a past medical history significant for Parkinson's disease and probable Parkinson's dementia, hypertension, hypothyroidism, BPH and hypogonadism who presented to the ED via EMS for confusion. The patient is resting in bed. He appears acutely ill. He endorses headache, nasal congestion, rhinitis, nonproductive cough, mild fever and chills, and mild chest pressure with deep inhalation. The patient's spouse reports that he had a significant cough the last several days but this has improved. He denies chest pain, palpitations, lightheadedness or dizziness, abdominal pain, nausea, vomiting, dysuria, diarrhea or constipation. The patient reports that he was a bit stiffer yesterday evening and was unsure if it was due to his viral illness or his Parkinson's. He is voiding and eliminating without difficulty. He has mild urinary retention due to BPH. He is up ambulating with assistance. Continue PT and OT. Exam Vital Signs (past 8 hours): - 10/07/19 09:40 10/07/19 11:26 10/07/19 16:06 Temperature 100.8 F H 99.9 F H 98.2 F Pulse Rate 86 83 Respiratory Rate 18 20 Blood Pressure 130/83 152/90 H Pulse Oximetry 99 99 Oxygen Delivery Method Room Air Oxygen Flow Rate 0 Narrative Exam Narrative: General: Elderly gentleman lying in bed and in no acute distress, appears acutely ill, well-developed, well-nourished, appropriately interactive. HEENT: Normocephalic, atraumatic. External ears without defect. Pupils equal, round, and reactive to light and accommodation. Anicteric sclerae, moist conjunctivae, and no lid lag. Oropharynx erythematous with moist mucosa. Neck: Supple with full range of motion. No jugular venous distension. No lymphadenopathy or thyromegaly. Cardiovascular: Regular rate and rhythm without murmurs, rubs, or gallops appreciated Pulmonary: Clear to auscultation with scattered rhonchi throughout all lung dodson. No wheeze or crackles. Normal respiratory effort with no use of accessory muscles. Abdomen: Soft, bowel sounds present, nontender, nondistended. No hepatosplenomegaly or masses appreciated. Extremities: No clubbing, cyanosis, or edema. Skin: Normal temperature, turgor, and texture; no rash, ulcers, or subcutaneous nodules appreciated. Neurological: Cranial nerves grossly intact. Mild parkinsonian tremor. Masked facies. Shuffling gait. Psychiatric: Normal mood and affect. Alert and oriented to person, place and time. Objective Labs Result Diagrams: 10/07/19 05:25 10/07/19 05:25 Labs: Laboratory Results - last 24 hr 10/06/19 10/06/19 10/06/19 20:40 20:40 20:40 WBC 6.1 RBC 4.75 Hgb 15.6 Hct 44.4 MCV 93.5 MCH 32.9 MCHC 35.2 RDW 13.4 Plt Count 164 Neut % (Auto) 85.8 H Lymph % (Auto) 6.1 L Johnston % (Auto) 6.9 Eos % (Auto) 0.9 L Baso % (Auto) 0.3 Neut # (Auto) 5200 Lymph # (Auto) 400 L Johnston # (Auto) 400 Eos # (Auto) 100 Baso # (Auto) 0 PT 12.4 INR 1.1 APTT 29 Sodium 135 L Potassium 4.0 Chloride 100 Carbon Dioxide 27 BUN 17 Creatinine 1.40 H Estimated GFR 49.3 L BUN/Creatinine Ratio 12.1 Glucose 118 H Lactate Calcium 9.1 Magnesium Total Bilirubin 0.8 AST 53 ALT 24 Alkaline Phosphatase 64 Ammonia Total Creatine Kinase CK-MB (CK-2) CK-MB (CK-2) Rel Index Troponin I 0.023 Total Protein 7.0 Albumin 4.3 Globulin 2.7 Albumin/Globulin Ratio 1.6 Triglycerides Cholesterol LDL Cholesterol, Calc HDL Cholesterol Lipase 96 Procalcitonin TSH Urine Color Urine Appearance Urine pH Ur Specific [place] Urine Protein Urine Glucose (UA) Urine Ketones Urine Occult Blood Urine Nitrate Urine Bilirubin Urine Urobilinogen Ur Leukocyte Esterase Urine RBC Urine WBC Ur Squamous Epith Cells Urine Bacteria Urine Sperm Ur Culture Indicated? Salicylates < 1.0 Acetaminophen < 10 L Ethyl Alcohol < 10 Influenza A & B (PCR) 10/06/19 10/06/19 10/06/19 20:40 20:40 20:40 WBC RBC Hgb Hct MCV MCH MCHC RDW Plt Count Neut % (Auto) Lymph % (Auto) Johnston % (Auto) Eos % (Auto) Baso % (Auto) Neut # (Auto) Lymph # (Auto) Johnston # (Auto) Eos # (Auto) Baso # (Auto) PT INR APTT Sodium Potassium Chloride Carbon Dioxide BUN Creatinine Estimated GFR BUN/Creatinine Ratio Glucose Lactate 1.5 Calcium Magnesium Total Bilirubin AST ALT Alkaline Phosphatase Ammonia < 9.0 L Total Creatine Kinase CK-MB (CK-2) CK-MB (CK-2) Rel Index Troponin I Total Protein Albumin Globulin Albumin/Globulin Ratio Triglycerides Cholesterol LDL Cholesterol, Calc HDL Cholesterol Lipase Procalcitonin 0.09 TSH Urine Color Urine Appearance Urine pH Ur Specific [place] Urine Protein Urine Glucose (UA) Urine Ketones Urine Occult Blood Urine Nitrate Urine Bilirubin Urine Urobilinogen Ur Leukocyte Esterase Urine RBC Urine WBC Ur Squamous Epith Cells Urine Bacteria Urine Sperm Ur Culture Indicated? Salicylates Acetaminophen Ethyl Alcohol Influenza A & B (PCR) 10/06/19 10/07/19 10/07/19 20:40 03:35 05:25 WBC 5.8 RBC 4.61 Hgb 15.2 Hct 42.9 MCV 93.2 MCH 33.1 MCHC 35.5 RDW 13.0 Plt Count 146 L Neut % (Auto) 79.8 H Lymph % (Auto) 10.5 L Johnston % (Auto) 8.6 Eos % (Auto) 0.2 L Baso % (Auto) 0.9 Neut # (Auto) 4600 Lymph # (Auto) 600 L Johnston # (Auto) 500 Eos # (Auto) 0 Baso # (Auto) 100 PT INR APTT Sodium Potassium Chloride Carbon Dioxide BUN Creatinine Estimated GFR BUN/Creatinine Ratio Glucose Lactate Calcium Magnesium Total Bilirubin AST ALT Alkaline Phosphatase Ammonia Total Creatine Kinase CK-MB (CK-2) CK-MB (CK-2) Rel Index Troponin I Total Protein Albumin Globulin Albumin/Globulin Ratio Triglycerides Cholesterol LDL Cholesterol, Calc HDL Cholesterol Lipase Procalcitonin TSH 0.80 Urine Color Yellow Urine Appearance Clear Urine pH 7.5 Ur Specific [place] 1.015 Urine Protein Trace H Urine Glucose (UA) Negative Urine Ketones Trace H Urine Occult Blood 3+ H Urine Nitrate Negative Urine Bilirubin Negative Urine Urobilinogen 1.0 Ur Leukocyte Esterase Negative Urine RBC 30-100/hpf H Urine WBC 0-1/hpf Ur Squamous Epith Cells 0-1 /hpf Urine Bacteria None seen Urine Sperm Occasional Ur Culture Indicated? Cult not indicated Salicylates Acetaminophen Ethyl Alcohol Influenza A & B (PCR) 10/07/19 10/07/19 10/07/19 05:25 05:25 05:25 WBC RBC Hgb Hct MCV MCH MCHC RDW Plt Count Neut % (Auto) Lymph % (Auto) Johnston % (Auto) Eos % (Auto) Baso % (Auto) Neut # (Auto) Lymph # (Auto) Johnston # (Auto) Eos # (Auto) Baso # (Auto) PT INR APTT Sodium 132 L Potassium 4.0 Chloride 100 Carbon Dioxide 24 BUN 17 Creatinine 1.20 Estimated GFR 58.9 L BUN/Creatinine Ratio 14.2 Glucose 108 Lactate Calcium 8.4 Magnesium 1.7 Total Bilirubin AST ALT Alkaline Phosphatase Ammonia Total Creatine Kinase CK-MB (CK-2) CK-MB (CK-2) Rel Index Troponin I 0.049 H Total Protein Albumin Globulin Albumin/Globulin Ratio Triglycerides 50 Cholesterol 150 LDL Cholesterol, Calc 98 HDL Cholesterol 42 Lipase Procalcitonin TSH 0.45 L D Urine Color Urine Appearance Urine pH Ur Specific [place] Urine Protein Urine Glucose (UA) Urine Ketones Urine Occult Blood Urine Nitrate Urine Bilirubin Urine Urobilinogen Ur Leukocyte Esterase Urine RBC Urine WBC Ur Squamous Epith Cells Urine Bacteria Urine Sperm Ur Culture Indicated? Salicylates Acetaminophen Ethyl Alcohol Influenza A & B (PCR) 10/07/19 10/07/19 14:10 15:51 WBC RBC Hgb Hct MCV MCH MCHC RDW Plt Count Neut % (Auto) Lymph % (Auto) Johnston % (Auto) Eos % (Auto) Baso % (Auto) Neut # (Auto) Lymph # (Auto) Johnston # (Auto) Eos # (Auto) Baso # (Auto) PT INR APTT Sodium Potassium Chloride Carbon Dioxide BUN Creatinine Estimated GFR BUN/Creatinine Ratio Glucose Lactate Calcium Magnesium Total Bilirubin AST ALT Alkaline Phosphatase Ammonia Total Creatine Kinase 473 H CK-MB (CK-2) 3.20 H CK-MB (CK-2) Rel Index 0.7 L Troponin I 0.034 Total Protein Albumin Globulin Albumin/Globulin Ratio Triglycerides Cholesterol LDL Cholesterol, Calc HDL Cholesterol Lipase Procalcitonin TSH Urine Color Urine Appearance Urine pH Ur Specific [place] Urine Protein Urine Glucose (UA) Urine Ketones Urine Occult Blood Urine Nitrate Urine Bilirubin Urine Urobilinogen Ur Leukocyte Esterase Urine RBC Urine WBC Ur Squamous Epith Cells Urine Bacteria Urine Sperm Ur Culture Indicated? Salicylates Acetaminophen Ethyl Alcohol Influenza A & B (PCR) Negative Assessment & Plan Assessment & Plan narrative: Radu Ryan is a 74-year-old male with a past medical history significant for Parkinson's disease and probable Parkinson's dementia, hypertension, hypothyroidism, BPH and hypogonadism who presented to the ED via EMS for confusion. 1. Acute viral pneumonia, present on admission. Active. -Patient presented with nonproductive cough, nasal congestion, rhinitis, sore throat, fever, and chills. -Influenza swab was negative. Respiratory viral PCR was read as invalid x2 and sent out to [facility], pending. -Chest x-ray did not demonstrate any acute cardiopulmonary findings. -Continue IV fluids with normal saline at 100 mL/hr. -Started empiric Tamiflu 75 mg twice daily until viral respiratory PCR results. -Continue supportive care with: IV fluid hydration, rest, acetaminophen 650 mg every 6 hours as needed for headache or fever, Sudafed 60 mg every 6 hours as needed for nasal congestion, saline sinus rinses, Tessalon Perles 100 mg 3 times daily as needed for cough, Mucinex 1200 mg twice daily, and Acapella to be use 10 times an hour while awake. 2. Possible metabolic encephalopathy, on probable chronic parkinsonian dementia, present on admission. CVA ruled out. -Patient was confused and reportedly driving around [place] looking at houses when he was supposed to be going to [place] to visit his son. He then got out to walk his dog and fell prompting bystanders to call 911. Patient is unable to recall events or [place] from [facility] to [place]. -CT brain did not demonstrate any acute intracranial abnormalities. Patient does have chronic microvascular ischemic changes. -MR stroke protocol did not demonstrate any significant stenosis, occlusions or aneurysms. Mild volume loss and microvascular ischemic changes present. -Echocardiogram did not demonstrate any embolic source or intra-atrial shunt. -Received aspirin 325 mg in the ED. Risk stratified with a fasting lipid panel which demonstrated good lipid control: Total cholesterol 150, triglycerides 50, HDL 42, and LDL 98. Typical goal LDL is less than 100, however, due to patient's possible TIA goal LDL is less than 70. Started and continue atorvastatin 20 mg daily at bedtime. -Consulted physical and occupational therapy for evaluation and treatment, pending. -Patient likely has metabolic encephalopathy secondary to viral pneumonia in conjunction with parkinsonian dementia which was unmasked due to acute illness versus TIA. 3. Elevated troponin, unclear significance, present on admission. Resolved. -Possibly secondary to demand ischemia from acute viral illness. -Initial troponin normal at 0.028. Repeat troponin elevated at 0.049. Then trended back down to normal at 0.034. -EKG demonstrated sinus rhythm with incomplete right bundle branch block and ST elevation in leads V1 and V2. -Patient denies chest pain but does endorse mild chest pressure with deep inspiration. He has no other ACS symptoms. -Discussed case with on-call email marketing assistant, Dr. Whitney, who recommends continued supportive treatment of acute viral pneumonia as above and if develops chest pain treat per standard ACS protocol. 4. 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 Stable. -Patient is followed by Neurology, Dr. Carol Ann Phillips in [place]. The patient's neurologist has discussed parkinsonian dementia but per the patient's spouse ?we did not believe he had it yet.? -Continue patient's home carbidopa-levodopa and pramipexole. -Consulted physical and occupational therapy for evaluation and treatment, pending. 5. Benign prostatic hypertrophy, chronic, present on admission. Stable. -ER staff identified medication in pill divider as doxazosin 8 mg. -Patient with mild urinary retention and PVR of 300 cc. -Continue to monitor PVR and straight cath if necessary. -Continue doxazosin 8 mg daily pending confirmation of med reconciliation. 6. Hypothyroidism, chronic, present on admission. Stable. -Ordered TSH with reflex, pending. -Continue levothyroxine 50 mcg daily pending confirmation of med reconciliation. 7. Hypogonadism, chronic, present on admission. Stable. -Patient has several male hormone listed on med reconciliation have not been confirmed. Disposition: Patient likely to discharge home with home health versus long term facility tomorrow. Quality VTE Deep Vein Thrombosis/Pulmonary Embolism Present on Admission: No
[2019-10-07 21:13] LABS: Miscellaneous to SVL SEE SEPERATE REPORT
[2019-10-07] MEDS: ATORVASTATIN 20 MG TABLET PO (21:38)
[2019-10-07] MEDS: guaiFENesin ER 600 MG TAB 1200 MG PO (21:39)
[2019-10-07] MEDS: DOXAZOSIN 4 MG TABLET 8 MG PO (21:39)
[2019-10-07] MEDS: OSELTAMIVIR 75 MG CAPSULE PO (21:39)
[2019-10-07] MEDS: PSEUDOEPHEDRINE 30 MG TABLET 60 MG PO (21:40)
[2019-10-08] MEDS: SODIUM CHLORIDE 0.9% 1,000 ML 100 ML IV (02:34)
[2019-10-08 05:00] VITALS: BP 152/79; PULSE 86; RESP 16; TEMP 37.9; O2SAT 93
[2019-10-08 05:31] LABS: Add Manual Diff / Slide Review NO; Basophils Absolute Auto 0 /uL (0-100); Basophils Percent Auto 0.5 % (0-2); Eosinophils Absolute Auto 0 /uL (0-450); Eosinophils Percent Auto 0.1 % (2-4); Hematocrit 41.3 % (41-53); Hemoglobin 14.7 g/dL (13.5-17.5); Lymphocytes Absolute Auto 800 /uL (1100-4500); Lymphocytes Percent Auto 14.4 % (25-40); Mean Corpuscular HGB Conc 35.6 % (30-36); Mean Corpuscular Hemoglobin 33.2 PG (26-34); Mean Corpuscular Volume 93.2 fL (80-100); Monocytes Absolute Auto 400 /uL (0-900); Monocytes Percent Auto 7.3 % (3-14); Neutrophils Absolute Auto 4300 /uL (1500-7000); Neutrophils Percent Auto 77.7 % (50-75); Platelet Count 123 X10^3/uL (150-400); Red Blood Cell Count 4.43 X10^6/uL (4.5-5.9); Red Cell Distribution Width 13.1 % (11.6-14.8); White Blood Cell Count 5.6 X10^3/uL (4.5-11.0)
[2019-10-08 05:39] LABS: Blood Urea Nitrogen 26 mg/dL (9-20); Calcium 7.9 mg/dL (8.4-10.2); Carbon Dioxide 25 mmol/L (22-32); Chloride 101 mmol/L (98-107); Estimated Glomerular Filt Rate 53.7 mL/min (>60); Glucose 101 mg/dL (80-110); HEMOLYSIS 21 (0-50); Magnesium 1.9 mg/dL (1.6-2.3); Potassium 4.3 mmol/L (3.4-5.1); Sodium 131 mmol/L (137-145)
[2019-10-08] MEDS: LEVOTHYROXINE 50 MCG TABLET PO (06:18)
[2019-10-08] MEDS: PRAMIPEXOLE 0.25 MG TABLET 0.5 MG PO ×2 (06:18→11:59)
[2019-10-08] MEDS: CARBIDOPA-LEVODOPA 25/100 TABLET 2 EACH PO ×2 (06:27→12:03)
[2019-10-08] MEDS: CARBIDOPA-LEVODOPA ER 50/200 TABLET 0.5 EACH PO ×2 (06:28→12:03)
--- NOTE | 2019-10-08 07:18 | DI.RAD.S_ITS ---
PROCEDURE: XR CHEST 1V INDICATIONS: viral pneumonia TECHNIQUE: One view of the chest was acquired. COMPARISON: [facility], CR, XR CHEST 1V, 10/06/2019, 20:42. [facility], CR, CHEST 2 VIEW, 07/22/2011, 13:37. FINDINGS: Surgical changes and devices: None. Lungs and pleura: Lungs are clear. No pleural effusions or pneumothorax. Mediastinum: Mediastinal contours appear normal. Heart size is mildly enlarged. Bones and chest wall: No suspicious bony lesions. Age-appropriate bony degenerative changes are seen. Overlying soft tissues appear unremarkable. IMPRESSION: No focal infiltrates are seen. Dictated by: Jj Clemente M.D. on 10/08/2019 at 6:57 Approved by: Jj Clemente M.D. on 10/08/2019 at 6:58
[2019-10-08 08:00] VITALS: BP 115/56; PULSE 81; RESP 24; TEMP 37.7; O2SAT 91
[2019-10-08 08:47] VITALS: PULSE 82; RESP 20; O2SAT 92
[2019-10-08 08:58] LABS: Acinetobacter baumannii Not Detected (Not Detect); E. coli Not Detected (Not Detect); Enterobacter cloacae complex Not Detected (Not Detect); Enterobacteriaceae species Not Detected (Not Detect); Enterococcus species Not Detected (Not Detect); Haemophilus influenzae Not Detected (Not Detect); Listeria monocytogenes Not Detected (Not Detect); Neisseria meningitidis Not Detected (Not Detect); Proteus species Not Detected (Not Detect); Serratia marcescens Not Detected (Not Detect); Staphylococcus species Not Detected (Not Detect); Streptococcus agalactiae (Gr B Not Detected (Not Detect); Streptococcus pneumonia Not Detected (Not Detect); Streptococcus pyogenes (Gr A) Not Detected (Not Detect); Streptococcus species Not Detected (Not Detect)
[2019-10-08 08:59] LABS: Candida albicans Not Detected (Not Detect); Candida glabrata Not Detected (Not Detect); Candida krusei Not Detected (Not Detect); Candida parapsilosis Not Detected (Not Detect); Candida tropicalis Not Detected (Not Detect); Pseudomonas aeruginosa Not Detected (Not Detect)
--- NOTE | 2019-10-08 09:20 | OT.IP.EVAL ---
Past Medical History (Last Updated 10/07/19 @ 03:09 by MARGARITA Juarez) Hypertension (Acute) Hypogonadism (Acute) Parkinsons disease (Acute) Surgical History (Last Updated 10/07/19 @ 03:09 by MARGARITA Juarez) History of tonsillectomy (Acute) Occupational Therapy Inpatient Evaluation/Re-Eval M1 PT/OT-IP Prior Functional Status Start: 10/07/19 17:41 Freq: NEEDED Status: Active Protocol: Document 10/08/19 09:20 INESSA (Rec: 10/08/19 09:49 DEVON [id number]) Medical Review Prior Functional Status Medical History Reviewed Yes Diet/Fluid Consistency Regular Communication WFL Mobility and Gait Pt reports I mobility and gait but would often use furniture within the house for support. Pt reports one fall in past year when brick work on outdoor stairs collapsed. Activities of Daily Living and IADL's Pt reports I with ADLs and IADLs including driving. Prior Functional Level (Other details) not here to confirm home situation or prior level of function. Pt states he splits his time between 2 homes, one in [place] and one in [place]. Per chart notes, broke her arm 10/07 after fall on ice. Social History Household Members spouse,children Living Arrangements House Number of Floors (Floors) One Floor Number of Stairs To Enter/Railing? 1 JOHN (no rail) in [place] (single level); 3-4 steps to enter with post in [place] (2 story) Home Environment Standard Height Toilet,Walk in Shower,Tub/Shower Home Equipment Front Wheel Walker,Hand Held Shower Employment Status Retired Additional Social History Comment Adult son lives with pt and his and can assist PRN. M2 OT-IP Current Condition Start: 10/07/19 17:00 Freq: Status: Active Protocol: Document 10/08/19 09:20 INESSA (Rec: 10/08/19 09:49 DEVON [id number]) Occupational Therapy Current Condition Current Condition Evaluation Date 10/08/19 Treatment Diagnosis decr'd self care, mobility, cognition with DX of PNA w/ encephalopathy Post Operative Precautions Other Precautions fall risk, impulsive, bed/ chair alarm M3 OT- IP Subjective and Pain Start: 10/07/19 17:00 Freq: Status: Active Protocol: Document 10/08/19 09:20 PJM (Rec: 10/08/19 09:49 [facility] [id number]) OT- Subjective Occupational Therapy Visit Type Type Initial Evaluation Visit Start Time 08:54 Visit Stop Time 09:20 Total Visit Minutes 26 Occupational Therapy Visit Comments Patient Comments I want to walk to the window and get my bearings. Patient/Caregiver Goals to go home to [facility] OT Pain Assessment Pain When Pain Assessed After Treatment Pain Present Pain Present Denied Pain M4 OT- IP ADL's Start: 10/07/19 17:00 Freq: Status: Active Protocol: Document 10/08/19 09:20 PJM (Rec: 10/08/19 09:49 [facility] [id number]) OT [id number] General Evaluation Self-Feeding Ability Independent OT ADL-Grooming General Evaluation Grooming Ability Standby Assistance Areas Needing Assistance Combing/Brushing Hair,Face Washing Comments OT Grooming Comments seated in chair OT ADL-Oral Care Comments Oral Care Comments did not occur this session OT ADL-Dressing General Eval Lower Body Dressing Ability Standby Assistance Areas Needing Assistance Socks Comments OT Dressing Comments pt donned/doffed socks seated in chair with effort, mildly SOB, O2 sats 93-94 on room air OT ADL-Toileting Comments OT Toileting Comments pt declined need this session OT ADL-Bathing Bathing Type Bathing Type Shower Comments OT Bathing Comments to be assessed as activity tolerance improves M5 OT- IP IADL's Start: 10/07/19 17:00 Freq: Status: Active Protocol: Document 10/08/19 09:20 PJM (Rec: 10/08/19 09:49 [facility] [id number]) OT-Instrumental Activities of Daily Living Home Safety Awareness Home Safety Comments to be assessed Medication Management Medication Management Comments pt states he manages meds independently; not here to confirm Meal Preparation Meal Preparation Caregiver Provides Assist Rougher Helper Rougher Helper Caregiver Provides Assist Driving Driving Comments Pt still driving. M6 OT- IP Functional Cognition Start: 10/07/19 17:00 Freq: Status: Active Protocol: Document 10/08/19 09:20 PJM (Rec: 10/08/19 09:49 [facility] [id number]) Cognitive Factors Limiting Selfcare Function Cognitive Ability Level of Alertness Alert Patient Orientation Name,Birthday,Month,Date,Year, Place Attention Span Ability Capable of Focused Attention Ability to Follow Commands Able to Follow One Step Commands Memory Description Short Term Impaired Safety Awareness Decreased Recall of Precautions,Underestimates Need for Assistance Cognitive Tests SLUMS on 10/07 per S.T. Cognitive Comments Cognitive Assessment Comments Pt does not recall events leading to hospitalization; improved orientation noted today OT- Vision and Hearing OT- Hearing Assessment OT- Hearing Assessment WFL OT- Vision Assessment Visual Acuity WFL,Glasses For Reading Visual Attentiveness WFL Vision Assessment Comments Pt able to read wall clock and call light labels without glasses M7 OT- IP Mobility and Balance Start: 10/07/19 17:00 Freq: Status: Active Protocol: Document 10/08/19 09:20 PJM (Rec: 10/08/19 09:49 PJ [id number]) OT- Bed Mobility Assessment Supine to Sit Supine to Sit Assist Standby Assistance,Head of Bed Elevated Scooting Scooting to Edge of Bed Standby Assistance OT-Transfer Assessment Sit to and From Stand Sit to and from Stand Contact Guard Assistance,1 Person Assistance Transfers Transfer Ability Contact Guard Assistance,1 Person Assistance Technique Transfer Destination Chair Transfer Technique Stand Step Pivot Devices Transfer Assistive Devices Gait Belt,Front Wheeled Walker OT- Gait Assessment Gait Gait Assistance Required: Contact Guard Assist Distance (Feet) 20 Assistive Devices Assistive Device Gait Belt,Front Wheeled Walker Comments Gait Ability Comments shuffling gait, unsteady on turns and when backing up to chair but no LOB noted OT- Balance Assessment Sitting Balance and Reactions Static Sitting Balance Ability Good Dynamic Sitting Balance Ability Good Standing Balance and Reactions Static Standing Balance Ability Good Dynamic Standing Balance Ability Fair Comments Other Balance Tests/Deviations/Treatment with FWW : M8 OT- IP Objective Assessments Start: 10/07/19 17:00 Freq: Status: Active Protocol: Document 10/08/19 09:20 PJM (Rec: 10/08/19 09:49 [facility] [id number]) OT Gross Range of Motion Upper Extremity Range of Motion Assessment Within Functional Limits OT Strength Upper Extremity Strength Assessment Within Functional Limits Hand Customer Service Cashier Strength Hand Dominance Right OT- Coordination Assessment Comments Coordination Comments BUE WFL for self care with no tremor noted OT-Muscle Tone Assessment Muscle Tone WNL Yes OT Sensation Assessment Comments Summary Comments Pt denies deficits in BUEs Edema Edema Absent M9 OT- IP Assessment and Plan Start: 10/07/19 17:00 Freq: Status: Active Protocol: Document 10/08/19 09:20 INESSA (Rec: 10/08/19 09:49 INESSA [id number]) OT Summary Assessment and Plan Potential Rehabilitation Potential Good Analytic Complexity at Evaluation Low Summary OT Impairments Balance,Functional Mobility, Grooming,Dressing,Toileting, Bathing,Toilet Transfers, Shower Transfers Assessment Summary Low complexity OT assessment completed on this 74 yr old male admitted with confusion and fall in the community DX of viral PNA with metabolic encephalopathy. Pt has hx of Parkinson's. Pt's orientation appears improved today, but he is still impulsive at times. Pt has performance deficits in all functional mobility/ transfers, standing grooming, mild deficits with LB dressing , bathing and toileting. Anticipate pt will continue to improve as his PNA is medically treated. Pt hopes to d/c home with (with broken arm on 10/07) and adult son to assist. Will provide further recommendations pending pt progress here. Will provide OT services to address the goals below. Goals Grooming Goal Independent Dressing Goal Independent Toileting Goal Independent Bathing Goal Standby Assistance Toilet Transfer Goal Standby Assistance Shower Transfer Goal Standby Assistance,Shower Chair Patient/Caregiver Education Goal Demonstrate Energy Conservation and Pacing, Caregiver Independent Assisting Patient OT-Other Goals Grooming to be done standing at sink with FWW with good safety awareness and no LOB. Days to Meet Goals 3 Frequency of Treatment Frequency Of Treatment Once a Day Treatment Plan OT Treatment Plan ADL Training,Functional Mobility,Patient/Family Education,Discharge Planning Discharge Recommendations OT Discharge Recommendations Home with 08/06 Assist Home Equipment Needs shower seat, grab bars in shower
[2019-10-08 09:36] LABS: TSH w/ Reflex to FT4 0.48 uIU/mL (0.47-4.68)
[2019-10-08] MEDS: guaiFENesin ER 600 MG TAB 1200 MG PO (09:49)
[2019-10-08] MEDS: ASPIRIN EC 81 MG TABLET PO (09:49)
[2019-10-08] MEDS: HEPARIN 5,000 UNIT/ML VIAL 5000 UNIT SUBCUT (09:49)
[2019-10-08] MEDS: PSEUDOEPHEDRINE 30 MG TABLET 60 MG PO (09:51)
--- NOTE | 2019-10-08 10:49 | PT.IPTN ---
Physical Therapy Treatment Note M2 PT-IP Current Condition Start: 10/07/19 17:41 Freq: NEEDED Status: Active Protocol: Document 10/07/19 14:30 JG (Rec: 10/07/19 18:05 JG [id number]) Physical Therapy Current Condition Current Condition Evaluation Date 10/07/19 Treatment Diagnosis Acute metabolic encephalopathy , AMS, difficulty walking, limited mobility Onset Date 10/06/19 Precautions Other Precautions Droplet precautions Weight Bearing Status Weight Bearing Status Full Weight Bearing M3 PT-IP Subjective Start: 10/07/19 17:41 Freq: NEEDED Status: Active Protocol: Document 10/08/19 10:49 AB (Rec: 10/08/19 12:41 AB [id number]) Subjective Physical Therapy Visit Type Type Treatment Note Visit Start Time 10:49 Visit Stop Time 11:21 Total Visit Minutes 32 Number of GARNETT MACHINE OPERATOR Visits 0 Physical Therapy Visit Comments Patient Comments pt is agreeable to do PT; spouse present M4 PT-IP Mobility and Gait Start: 10/07/19 17:41 Freq: NEEDED Status: Active Protocol: Document 10/08/19 10:49 AB (Rec: 10/08/19 12:41 AB [id number]) PT-Bed Mobility Assessment Supine to Sit Supine to Sit Standby Assistance Scooting Scooting to Edge of Bed Standby Assistance PT-Transfer Assessment Sit to and From Stand Sit to and from Stand Contact Guard Assistance,1 Person Assistance,Use of Upper Extremities Equipment Transfer Assistive Device Gait Belt,Front Wheeled Walker Orthotic/Prosthetic Devices or Brace: No Transfers Transfer Destination Chair Transfer Technique Stand Step Pivot Transfer Ability Level of Assist Contact Guard Assistance,1 Person Assistance,Use of Upper Extremities Comments Mobility Comments pt completed bed mobility supine to sit SBA and cues. required 2 attempts to complete and requires increase time to complete task. pt's spouse present and has ERICE fx and stated that she will have surgery on thursday and will not be able to assist pt. pt completed sit to stand from EOB CGA and ambulated in room ~ 35 ft using FWW CGA to min A . Informed pt regarding pt's assistance needs and safety. spouse stated that they can set up a bed on the main level of the house but still has to steps without rails to get into the house. completed up/ down step stool and pt unable to complete without AD with LOB requiring max A. complete with OUTREACH ASSOCIATE of max and max cues . required 3 attempts to complete. informed pt and spouse regarding assistance needed at this time and SNF recommendation. spouse and pt stated that nothing is set yet and they will talk about his d/c plans. Gait Assessment Gait Gait Assistance Required: Contact Guard Assist,Minimum Assistance,1 Person Assist Distance (Feet) 35 Able to Maintain Weight Bearing Status Yes During Gait Assistive Devices Assistive Device Gait Belt,Front Wheeled Walker Orthotic/Prosthetic Devices or Brace: No Gait Deviations General Gait Pattern Antalgic,Festinating,Narrow Based Gait Factors Limiting Gait Function Factors Limiting Gait Function Abnormal Tonal Influences, Decreased Activity Tolerance, Decreased Strength,Difficulty Following Directions,Limited Range of Motion,Poor Balance, Poor Safety Awareness Comments Gait Comments pt presents with festinating gait after a few feet of walking; also has freezing episodes requiring cues to take big steps. Stair Climbing Assessment Evaluation Level of Assist On Stairs Maximal Assistance,1 Person Assistance Devices Stair Climbing Assistive Devices None Technique/Endurance Stair Climbing Direction Ascend and Descend Stair Climbing Technique Step to Step Number of Steps Climbed 1 Stair Climbing Set # Repetitions (reps) 1 Comments Stair Climbing Comments pls refer to mobility section for detais. M5 PT-IP Objective Assessments Start: 10/07/19 17:41 Freq: NEEDED Status: Active Protocol: Document 10/07/19 14:30 JG (Rec: 10/07/19 18:05 JG [id number]) Orientation Orientation/Cognition Level of Alertness Confusional State Orientation Name,Place Language Function Ability No Deficits Noted Safety Awareness Decreased Safety Awareness Memory Description Short Term Impaired Comments Pt was confused during session and demonstrates very poor safety awareness. Pt is impulsive and requires max cuing for safety. Gross Range of Motion Upper Extremity ROM Assessment Within Functional Limits Lower Extremity ROM Assessment Within Functional Limits Strength Upper Extremity Strength Assessment Bilaterally Impaired Lower Extremity Strength Assessment Bilaterally Impaired Comments Strength Comments 4/5 throughout Coordination Assessment Gross Coordination Gross Coordination Impaired Assessment Finger to Nose Test Minimal Impairment Pronation/Supination Test Normal Performance Foot Tapping Test Minimal Impairment Heel on Dawson Test Minimal Impairment Sensation Assessment Sensation Gross Sensation WNL M6 PT-IP Treatment Start: 10/07/19 17:41 Freq: NEEDED Status: Active Protocol: Document 10/08/19 10:49 AB (Rec: 10/08/19 12:41 AB [id number]) Physical Therapy Treatment Education Education Provided Safety M7 PT-IP Assessment and Plan Start: 10/07/19 17:41 Freq: NEEDED Status: Active Protocol: Document 10/08/19 10:49 AB (Rec: 10/08/19 12:41 AB [id number]) PT Summary Assessment and Plan Potential Rehabilitation Potential Good Summary Impairments Pain,ROM,Strength,Balance, Coordination,Sensation,Tone, Cognition,Bed Mobility, Transfers,Gait,Activity Tolerance Progress Towards Goals Progressing Toward Goals Assessment Summary pt progressing with mobility but continues to require CGA to min A with ambulation using FWW, presents with festinating gait and freezing episodes. pt also requires max handheld assist for up/ down steps. At this time, spouse will not be able to provide assistance pt needs. pt will need SNF rehab. Goals Bed Mobility Goal Independent Transfer Goal Standby Assistance,Front Wheeled Walker Gait Goal Standby Assistance,Front Wheel Walker Gait Distance 100 Other Goals Ascend/descend 2 steps without rails CGA Days to Meet Goals 10 Frequency of Treatment Frequency Of Treatment Once a Day Treatment Plan Physical Therapy Treatment Plan Bed Mobility Training,Transfer Training,Gait Training, Therapeutic Exercise,Balance Retraining,Post Op Education, Discharge Planning, Neuromuscular Re-ed, Coordination Retraining Recommendations To Nursing Amount of Assist Needed 1 Person Assist Discharge Recommendations PT Discharge Recommendations SNF Rehab
--- NOTE | 2019-10-08 10:49 | PT.IPTN ---
Physical Therapy Treatment Note M2 PT-IP Current Condition Start: 10/07/19 17:41 Freq: NEEDED Status: Active Protocol: Document 10/07/19 14:30 JG (Rec: 10/07/19 18:05 JG [id number]) Physical Therapy Current Condition Current Condition Evaluation Date 10/07/19 Treatment Diagnosis Acute metabolic encephalopathy , AMS, difficulty walking, limited mobility Onset Date 10/06/19 Precautions Other Precautions Droplet precautions Weight Bearing Status Weight Bearing Status Full Weight Bearing M3 PT-IP Subjective Start: 10/07/19 17:41 Freq: NEEDED Status: Active Protocol: Document 10/08/19 10:49 AB (Rec: 10/08/19 12:41 AB [id number]) Subjective Physical Therapy Visit Type Type Treatment Note Visit Start Time 10:49 Visit Stop Time 11:21 Total Visit Minutes 43 Notes pt seen for split visits: 1049 to 1121 and 1345 to 1356 Number of ADZING AND BORING MACHINE HELPER Visits 0 Physical Therapy Visit Comments Patient Comments pt is agreeable to do PT; spouse present M4 PT-IP Mobility and Gait Start: 10/07/19 17:41 Freq: NEEDED Status: Active Protocol: Document 10/08/19 10:49 AB (Rec: 10/08/19 12:41 AB [id number]) PT-Bed Mobility Assessment Supine to Sit Supine to Sit Standby Assistance Scooting Scooting to Edge of Bed Standby Assistance PT-Transfer Assessment Sit to and From Stand Sit to and from Stand Contact Guard Assistance,1 Person Assistance,Use of Upper Extremities Equipment Transfer Assistive Device Gait Belt,Front Wheeled Walker Orthotic/Prosthetic Devices or Brace: No Transfers Transfer Destination Chair Transfer Technique Stand Step Pivot Transfer Ability Level of Assist Contact Guard Assistance,1 Person Assistance,Use of Upper Extremities Comments Mobility Comments pt completed bed mobility supine to sit SBA and cues. required 2 attempts to complete and requires increase time to complete task. pt's spouse present and has ERICE johnathon and stated that she will have surgery on thursday and will not be able to assist pt. pt completed sit to stand from EOB CGA and ambulated in room ~ 35 ft using FWW CGA to min A . Informed pt regarding pt's assistance needs and safety. spouse stated that they can set up a bed on the main level of the house but still has to steps without rails to get into the house. completed up/ down step stool and pt unable to complete without AD with LOB requiring max A. complete with [employer] MAGISTRATE of max and max cues . required 3 attempts to complete. informed pt and spouse regarding assistance needed at this time and SNF recommendation. spouse and pt stated that nothing is set yet and they will talk about his d/c plans. Gait Assessment Gait Gait Assistance Required: Contact Guard Assist,Minimum Assistance,1 Person Assist Distance (Feet) 35 Able to Maintain Weight Bearing Status Yes During Gait Assistive Devices Assistive Device Gait Belt,Front Wheeled Walker Orthotic/Prosthetic Devices or Brace: No Gait Deviations General Gait Pattern Antalgic,Festinating,Narrow Based Gait Factors Limiting Gait Function Factors Limiting Gait Function Abnormal Tonal Influences, Decreased Activity Tolerance, Decreased Strength,Difficulty Following Directions,Limited Range of Motion,Poor Balance, Poor Safety Awareness Comments Gait Comments pt presents with festinating gait after a few feet of walking; also has freezing episodes requiring cues to take big steps. Stair Climbing Assessment Evaluation Level of Assist On Stairs Maximal Assistance,1 Person Assistance Devices Stair Climbing Assistive Devices None Technique/Endurance Stair Climbing Direction Ascend and Descend Stair Climbing Technique Step to Step Number of Steps Climbed 1 Stair Climbing Set # Repetitions (reps) 1 Comments Stair Climbing Comments pls refer to mobility section for detais. M5 PT-IP Objective Assessments Start: 10/07/19 17:41 Freq: NEEDED Status: Active Protocol: Document 10/07/19 14:30 JG (Rec: 10/07/19 18:05 JG [id number]) Orientation Orientation/Cognition Level of Alertness Confusional State Orientation Name,Place Language Function Ability No Deficits Noted Safety Awareness Decreased Safety Awareness Memory Description Short Term Impaired Comments Pt was confused during session and demonstrates very poor safety awareness. Pt is impulsive and requires max cuing for safety. Gross Range of Motion Upper Extremity ROM Assessment Within Functional Limits Lower Extremity ROM Assessment Within Functional Limits Strength Upper Extremity Strength Assessment Bilaterally Impaired Lower Extremity Strength Assessment Bilaterally Impaired Comments Strength Comments 4/5 throughout Coordination Assessment Gross Coordination Gross Coordination Impaired Assessment Finger to Nose Test Minimal Impairment Pronation/Supination Test Normal Performance Foot Tapping Test Minimal Impairment Heel on Dawson Test Minimal Impairment Sensation Assessment Sensation Gross Sensation WNL M6 PT-IP Treatment Start: 10/07/19 17:41 Freq: NEEDED Status: Active Protocol: Document 10/08/19 10:49 AB (Rec: 10/08/19 12:41 [id number]) Physical Therapy Treatment Education Education Provided Safety Other Treatments Other Treatment Performed Dr. Bautista and nurse informed PT regarding pt d/c. pt is on observation and pt/spouse decided to go home. pt and spouse initially stated that their son is not available to assist them when pt was seen this morning. pt and spouse was informed regarding PT's recommendation of SNF rehab since spouse will not be able to assist pt and pt needs min A with ambulation and is max A with stair climbing. Dr. bautista informed PT that spouse stated that their son will be able to help. Verbal order received to dispense FWW to pt . provided FWW to pt and signed paper. asked pt and spouse regarding assistance at home and stated that they just talked to their son and will be available to help and another son will be able to help out when the other is not around. educated and demonstrated to pt and spouse on how to do stairs climbing. expressed understanding and has no other concerns. M7 PT-IP Assessment and Plan Start: 10/07/19 17:41 Freq: NEEDED Status: Active Protocol: Document 10/08/19 10:49 AB (Rec: 10/08/19 12:41 [id number]) PT Summary Assessment and Plan Potential Rehabilitation Potential Good Summary Impairments Pain,ROM,Strength,Balance, Coordination,Sensation,Tone, Cognition,Bed Mobility, Transfers,Gait,Activity Tolerance Progress Towards Goals Progressing Toward Goals Assessment Summary pt progressing with mobility but continues to require CGA to min A with ambulation using FWW, presents with festinating gait and freezing episodes. pt also requires max handheld assist for up/ down steps. At this time, spouse will not be able to provide assistance pt needs. pt will need SNF rehab. Goals Bed Mobility Goal Independent Transfer Goal Standby Assistance,Front Wheeled Walker Gait Goal Standby Assistance,Front Wheel Walker Gait Distance 100 Other Goals Ascend/descend 2 steps without rails CGA Days to Meet Goals 10 Frequency of Treatment Frequency Of Treatment Once a Day Treatment Plan Physical Therapy Treatment Plan Bed Mobility Training,Transfer Training,Gait Training, Therapeutic Exercise,Balance Retraining,Post Op Education, Discharge Planning, Neuromuscular Re-ed, Coordination Retraining Recommendations To Nursing Amount of Assist Needed 1 Person Assist Discharge Recommendations PT Discharge Recommendations SNF Rehab
--- NOTE | 2019-10-08 11:19 | PM.DS.1 ---
History of Present Illness History of Present Illness Date Patient Seen: 10/06/19 Chief complaint: Confusion, [id number] Narrative: Written by Nirmal AVILA: Mr. Radu Garvin this 74-year-old right-handed male with a history significant for parkinsonism hypertension and hypogonadism that presents to the hospital by EMS with altered mental status. The patient is a poor historian and unable to effectively relate history of events or recall information. Reportedly the patient left his home in Thursday on [facility] this morning. From conversation by the ER provider with the patient's the patient was more confused this morning when he left home to visit his son in [place]. The patient states he was driving around looking at houses but did not realize he was in [place]. He got out of his car with his dog who pulled him over falling to the ground, bystanders called EMS. Patient denies hitting his head or loss of consciousness, no neck or back pain. The patient has difficulty describing any of the events of today and may remember 1 facet but is unable to recall further. When asked about getting on the very he asks ?was that today??. Has difficulty with dates and times and is unable to recall today's date. The patient does complain of a bitemporal headache Dona states ?is not bad?. He reports no visual changes, no dizziness, no ataxia but adds that he felt stiff and his feet felt like cement. He has had no nausea vomiting and denies diaphoresis. He recalls no recent illness and denies fevers or chills. He denies complaints of chest pain or palpitations, shortness of breath cough or wheezing. Has no abdominal pain, changes in bowel or bladder habits. Upon arrival the ER the patient is febrile with temperature of 100.7?, tachycardic at 102, blood pressure 132/85, respirations 15 saturating 95%. The patient was evaluated with a CT scan of the head which finds no acute intracranial pathology have finds chronic microvascular ischemic changes. He had a chest x-ray taken which was negative with no evidence of pneumonia. On laboratory analysis he has white count of 6.1, hemoglobin of 15.6 and hematocrit of 44.4 with platelets 164. He has lactic acid of 1.5 and a troponin of 0.023. Electrolytes are within normal limits however he does have a BUN of 17 and a creatinine of 1.4 and nonfasting glucose of 118. His LFTs with normal limits as is his lipase at 96 and ammonia less than 0.9. Tox screen is negative for salicylates Tylenol or alcohol. The patient is admitted to the Medicine service for fever with unknown source, altered mental status, possible CVA. Discharge Providers Provider Date of admission: 10/06/19 22:44 Discharge Date: 10/08/19 Consults: 10/06/19 23:48 Consult to Discharge Planning Routine Comment: Consult to Occupational Therapy Evaluate & Treat Comment: Parkinson's, altered mental status, gait disturban Physician Instructions: Evaluate and treat Consult to Physical Therapy Evaluate & Treat Comment: Parkinson's, altered mental status, gait disturban Physician Instructions: Evaluate and Treat Consult to Speech Therapy Evaluate & Treat Comment: Altered mental status, possible CVA Physician Instructions: Evaluate and treat 10/07/19 01:06 Consult to Dietitian, Adult Routine Comment: Patient reports trying to lose weight Reason For Exam: reflexed from admission Discharge provider: rBiana Best DO Summary Hospital Course Discharge Diagnosis: 1. Acute viral pneumonia, secondary to human metapneumovirus present on admission. Improving. 2. Possible metabolic encephalopathy, on probable chronic Parkinson's dementia, present on admission. CVA ruled out. 3. Elevated troponin, unclear significance, present on admission. Resolved. 4. 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 Stable. 5. Benign prostatic hypertrophy, chronic, present on admission. Stable. 6. Hypothyroidism, chronic, present on admission. Stable. 7. Hypogonadism, chronic, present on admission. Stable. Hospital Course: Radu Ryan is a 74-year-old male with a past medical history significant for Parkinson's disease and probable Parkinson's dementia, hypertension, hypothyroidism, BPH and hypogonadism who presented to the ED via EMS for confusion. 1. Acute viral pneumonia, secondary to human metapneumovirus present on admission. Improving. -Patient presented with nonproductive cough, nasal congestion, rhinitis, sore throat, fever, and chills. -Influenza swab was negative. Respiratory viral PCR was read as invalid x2 and sent out to [facility] and was positive for human metapneumovirus. -Chest x-ray did not demonstrate any definitive infiltrate. By clinical exam patient has viral pneumonia. -Continued IV fluids with normal saline at 100 mL/hr until adequately hydrated then discontinued. -Started empiric Tamiflu 75 mg twice daily until viral respiratory PCR resulted then discontinued. -Continued supportive care with: IV fluid hydration, rest, acetaminophen 650 mg every 6 hours as needed for headache or fever, albuterol inhaler 2 puffs every 4-6 hours as needed for shortness of breath or wheezing, Sudafed 60 mg every 6 hours as needed for nasal congestion, saline sinus rinses, Tessalon Perles 100 mg 3 times daily as needed for cough, Mucinex 1200 mg twice daily, and Acapella to be use 10 times an hour while awake. 2. Acute metabolic encephalopathy, on probable chronic Parkinson's dementia, present on admission. CVA ruled out. -Patient was confused and reportedly driving around [place] looking at houses when he was supposed to be going to [place] to visit his son. He then got out to walk his dog and fell due to the dog pulling him down which prompted bystanders to call 911. The patient is unable to recall [address] from [facility] to [place]. -CT brain did not demonstrate any acute intracranial abnormalities. Patient does have chronic microvascular ischemic changes. -MR stroke protocol did not demonstrate any significant stenosis, occlusions or aneurysms. Mild volume loss and microvascular ischemic changes present. -Echocardiogram did not demonstrate any embolic source or intra-atrial shunt. -Received aspirin 325 mg in the ED. Risk stratified with a fasting lipid panel which demonstrated good lipid control: Total cholesterol 150, triglycerides 50, HDL 42, and LDL 98. Typical goal LDL is less than 100, however, due to patient's possible TIA goal LDL is less than 70. Started and continue atorvastatin 20 mg daily at bedtime. -Continued physical and occupational therapy evaluation and treatment. Physical therapy recommends [facility] facility for rehabilitation. Occupational therapy recommends grab bars in shower and shower seat and home with 24 hours assistance. -Patient likely had metabolic encephalopathy secondary to viral pneumonia in conjunction with Parkinson's dementia which was unmasked due to acute illness versus TIA. 3. Elevated troponin, unclear significance, present on admission. Resolved. -Likely secondary to demand ischemia from acute viral illness. -Initial troponin normal at 0.028. Repeat troponin elevated at 0.049 then trended back down to normal at 0.034. -EKG demonstrated sinus rhythm with incomplete right bundle branch block and ST elevation in leads V1 and V2. -Patient denies chest pain but does endorse mild chest pressure with deep inspiration. He has no other ACS symptoms. -Discussed case with on-call support associate, Dr. Whitney, who recommends continued supportive treatment of acute viral pneumonia as above and if he developed chest pain would treat per standard ACS protocol. Patient never had chest pain during hospitalization. 4. 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 Stable. -Patient is followed by Neurology, Dr. Carol Ann Phillips in [place]. The patient's neurologist has discussed parkinsonian dementia but per the patient's spouse ?we did not believe he had it yet.? -Continued patient's home carbidopa-levodopa and pramipexole. -Continued physical and occupational therapy evaluation and treatment. 5. Benign prostatic hypertrophy, chronic, present on admission. Stable. -Patient with mild urinary retention and PVR of 300 cc. Continued to monitor PVR and straight cath if necessary. -Continued home doxazosin 8 mg daily. 6. Hypothyroidism, chronic, present on admission. Stable. -TSH low normal at 0.48. -Continued home levothyroxine 50 mcg daily. 7. Hypogonadism, chronic, present on admission. Stable. -Patient has several male hormone listed on med reconciliation which were not confirmed. Exam Vital Signs (past 8 hours): - 10/08/19 05:00 10/08/19 08:00 10/08/19 08:47 Temperature 100.2 F H 99.8 F H Pulse Rate 86 81 82 Respiratory Rate 16 24 20 Blood Pressure 152/79 H 115/56 L Pulse Oximetry 93 91 92 Oxygen Delivery Method Room Air Oxygen Flow Rate 0 Narrative Exam Narrative: General: Elderly gentleman lying in bed and in no acute distress, appears acutely ill, well-developed, well-nourished, appropriately interactive. HEENT: Normocephalic, atraumatic. External ears without defect. Pupils equal, round, and reactive to light and accommodation. Anicteric sclerae, moist conjunctivae, and no lid lag. Oropharynx erythematous with moist mucosa. Neck: Supple with full range of motion. No jugular venous distension. No lymphadenopathy or thyromegaly. Cardiovascular: Regular rate and rhythm without murmurs, rubs, or gallops appreciated Pulmonary: Clear to auscultation with scattered rhonchi throughout all lung dodson improving with occasional wheeze. No crackles. Normal respiratory effort with no use of accessory muscles. Abdomen: Soft, bowel sounds present, nontender, nondistended. No hepatosplenomegaly or masses appreciated. Extremities: No clubbing, cyanosis, or edema. Skin: Normal temperature, turgor, and texture; no rash, ulcers, or subcutaneous nodules appreciated. Neurological: Cranial nerves grossly intact. Mild parkinsonian tremor. Masked facies. Shuffling gait. Psychiatric: Normal mood and affect. Alert and oriented to person, place and time. Objective Labs Result Diagrams: 10/08/19 05:10 10/08/19 05:10 Labs: Laboratory Results - last 24 hr 10/06/19 10/07/19 10/07/19 20:40 01:00 14:10 WBC RBC Hgb Hct MCV MCH MCHC RDW Plt Count Neut % (Auto) Lymph % (Auto) Mckenzie % (Auto) Eos % (Auto) Baso % (Auto) Neut # (Auto) Lymph # (Auto) Mckenzie # (Auto) Eos # (Auto) Baso # (Auto) Sodium Potassium Chloride Carbon Dioxide BUN Creatinine Estimated GFR BUN/Creatinine Ratio Glucose Calcium Magnesium Total Creatine Kinase CK-MB (CK-2) CK-MB (CK-2) Rel Index Troponin I Procalcitonin TSH A. baumannii (PCR) Not detected Chlamy pneumoniae PCR Cancelled Adenovirus (PCR) Cancelled B.parapertussis DNA PCR Cancelled Nan albicans (PCR) Not detected C. glabrata (PCR) Not detected C. krusei (PCR) Not detected C. parapsilosis (PCR) Not detected C. tropicalis (PCR) Not detected Coronavirus OC43 (PCR) Cancelled Coronavirus HKU1 (PCR) Cancelled Coronavirus 229E (PCR) Cancelled Coronavirus NL63 (PCR) Cancelled Enterobacteriac sp PCR Not detected E. cloacae complex PCR Not detected Enterococcus sp PCR Not detected E. coli (PCR) Not detected H. influenzae (PCR) Not detected Human Metapneumovir PCR Cancelled Influenza Type A (PCR) Cancelled Influenza Type B (PCR) Cancelled Influenza A & B (PCR) Negative Klebsiella oxytoca PCR Not detected Klebsiella pneumoniae Not detected List. monocytogenes PCR Not detected M. pneumoniae (PCR) Cancelled N. meningitidis (PCR) Not detected Parainfluenza 1 (PCR) Cancelled Parainfluenza 2 (PCR) Cancelled Parainfluenza 3 (PCR) Cancelled Parainfluenza 4 (PCR) Cancelled Proteus species (PCR) Not detected RSV (PCR) Cancelled Entero/Rhino (PCR) Cancelled Serratia marcescens PCR Not detected Staphylococcus sp PCR Not detected Staph aureus (PCR) Not detected mecA-Methicil Res Gene Not Reportable Streptococcus sp PCR Not detected Group A Strep (PCR) Not detected Strep agalactiae (PCR) Not detected Strep pneumoniae (PCR) Not detected P. aeruginosa (PCR) Not detected Sarah/B-Vanco Res Genes Not Reportable KPC-Carbap Res Gene PCR Not Reportable Ref Test (Refrig) 10/07/19 10/07/19 10/08/19 15:51 17:50 05:00 WBC RBC Hgb Hct MCV MCH MCHC RDW Plt Count Neut % (Auto) Lymph % (Auto) Mckenzie % (Auto) Eos % (Auto) Baso % (Auto) Neut # (Auto) Lymph # (Auto) Mckenzie # (Auto) Eos # (Auto) Baso # (Auto) Sodium Potassium Chloride Carbon Dioxide BUN Creatinine Estimated GFR BUN/Creatinine Ratio Glucose Calcium Magnesium Total Creatine Kinase 473 H CK-MB (CK-2) 3.20 H CK-MB (CK-2) Rel Index 0.7 L Troponin I 0.034 Procalcitonin TSH 0.48 A. baumannii (PCR) Chlamy pneumoniae PCR Adenovirus (PCR) B.parapertussis DNA PCR Nan albicans (PCR) C. glabrata (PCR) C. krusei (PCR) C. parapsilosis (PCR) C. tropicalis (PCR) Coronavirus OC43 (PCR) Coronavirus HKU1 (PCR) Coronavirus 229E (PCR) Coronavirus NL63 (PCR) Enterobacteriac sp PCR E. cloacae complex PCR Enterococcus sp PCR E. coli (PCR) H. influenzae (PCR) Human Metapneumovir PCR Influenza Type A (PCR) Influenza Type B (PCR) Influenza A & B (PCR) Klebsiella oxytoca PCR Klebsiella pneumoniae List. monocytogenes PCR M. pneumoniae (PCR) N. meningitidis (PCR) Parainfluenza 1 (PCR) Parainfluenza 2 (PCR) Parainfluenza 3 (PCR) Parainfluenza 4 (PCR) Proteus species (PCR) RSV (PCR) Entero/Rhino (PCR) Serratia marcescens PCR Staphylococcus sp PCR Staph aureus (PCR) mecA-Methicil Res Gene Streptococcus sp PCR Group A Strep (PCR) Strep agalactiae (PCR) Strep pneumoniae (PCR) P. aeruginosa (PCR) Sarah/B-Vanco Res Genes KPC-Carbap Res Gene PCR Ref Test (Refrig) See seperate report 10/08/19 10/08/19 10/08/19 05:10 05:10 05:10 WBC 5.6 RBC 4.43 L Hgb 14.7 Hct 41.3 MCV 93.2 MCH 33.2 MCHC 35.6 RDW 13.1 Plt Count 123 L Neut % (Auto) 77.7 H Lymph % (Auto) 14.4 L Mckenzie % (Auto) 7.3 Eos % (Auto) 0.1 L Baso % (Auto) 0.5 Neut # (Auto) 4300 Lymph # (Auto) 800 L Mckenzie # (Auto) 400 Eos # (Auto) 0 Baso # (Auto) 0 Sodium 131 L Potassium 4.3 Chloride 101 Carbon Dioxide 25 BUN 26 H Creatinine 1.30 H Estimated GFR 53.7 L BUN/Creatinine Ratio 20.0 Glucose 101 Calcium 7.9 L Magnesium 1.9 Total Creatine Kinase CK-MB (CK-2) CK-MB (CK-2) Rel Index Troponin I Procalcitonin 0.20 TSH A. baumannii (PCR) Chlamy pneumoniae PCR Adenovirus (PCR) B.parapertussis DNA PCR Nan albicans (PCR) C. glabrata (PCR) C. krusei (PCR) C. parapsilosis (PCR) C. tropicalis (PCR) Coronavirus OC43 (PCR) Coronavirus HKU1 (PCR) Coronavirus 229E (PCR) Coronavirus NL63 (PCR) Enterobacteriac sp PCR E. cloacae complex PCR Enterococcus sp PCR E. coli (PCR) H. influenzae (PCR) Human Metapneumovir PCR Influenza Type A (PCR) Influenza Type B (PCR) Influenza A & B (PCR) Klebsiella oxytoca PCR Klebsiella pneumoniae List. monocytogenes PCR M. pneumoniae (PCR) N. meningitidis (PCR) Parainfluenza 1 (PCR) Parainfluenza 2 (PCR) Parainfluenza 3 (PCR) Parainfluenza 4 (PCR) Proteus species (PCR) RSV (PCR) Entero/Rhino (PCR) Serratia marcescens PCR Staphylococcus sp PCR Staph aureus (PCR) mecA-Methicil Res Gene Streptococcus sp PCR Group A Strep (PCR) Strep agalactiae (PCR) Strep pneumoniae (PCR) P. aeruginosa (PCR) Sarah/B-Vanco Res Genes KPC-Carbap Res Gene PCR Ref Test (Refrig) Discharge Plan Discharge Plan Patient Disposition: Home Health Service Discharge comment: You're being discharged home with home health for PT/OT. You have a viral pneumonia called human metapneumovirus which is a flu-like illness. There are no antiviral medications to treat this and supportive care is the mainstay of treatment. You have been prescribed Tylenol 650 mg every 6 hours as needed for headache or Sudafed 60 mg every 6 hours as needed for nasal congestion/runny nose, Tessalon Perles 100 mg 3 times daily as needed for cough, Mucinex 1200 mg twice daily for the next 5-7 days to help thin out mucous secretions, Acapella (blueberry) use 10 times an hour while awake to help break up and expectoration mucus, albuterol inhaler 2 puffs every 4-6 hours as needed for wheezing, nasal saline spray or Neti pot sinus rinses 2-6 times daily to cut cold time in half (make sure to boil water and let cool to room temperature prior to use and do not use tap water). Please get plenty of rest and try to stay well hydrated. Recommend not taking your furosemide for 1-2 days while acutely ill. You did not have a stroke. There is a possibility that you had a TIA (versus confusion from acute illness in conjuction with dementia) and you have been prescribed aspirin (enteric-coated) 81 mg daily and atorvastatin 20 mg daily at bedtime for stroke prevention. Occupational therapy recommends grab bars and chair/shower seat in shower, walker to ambulate, someone with you 08/06 and no driving. Your cognitive testing demonstrated severe cognitive impairment that is classified as dementia. You may repeat cognitive testing with your neurologist in the future when you are not acutely ill to determine your cognitive abilities and whether or not you have dementia or should be driving. Please follow-up with your primary care provider, Dr. Johns or a new primary care physician in [place], regarding your hospitalization (hospital follow-up). Discharge orders & Medications Prescriptions: New atorvastatin [Lipitor] 20 mg Tablet 20 mg PO BEDTIME Qty: 30 RF: 0 aspirin 81 mg Tablet,Delayed Release (Dr/Ec) 81 mg PO DAILY Qty: 30 RF: 0 acetaminophen 325 mg Tablet 650 mg PO Q6H PRN (Reason: headache or fever) Qty: 30 RF: 0 benzonatate 100 mg Capsule 100 mg PO TID PRN (Reason: Cough) Qty: 30 RF: 0 pseudoephedrine HCl 30 mg Tablet 60 mg PO Q6HR PRN (Reason: Congestion) Qty: 30 RF: 0 sodium chloride [Deep Sea Nasal] 0.65 % Aerosol,[place] 1 spray intranasal PRN PRN (Reason: Congestion) Qty: 1 RF: 0 guaifenesin [Mucus Relief ER] 600 mg Tablet Extended Release 12hr 1,200 mg PO BID Qty: 30 RF: 0 albuterol sulfate 90 mcg/actuation HFA aerosol inhaler 2 puff INHALATION Q4-6H PRN (Reason: shortness of breath or wheezing) Qty: 18 RF: 0 Continued CHOLECALCIFEROL (VITAMIN D3) (VITAMIN D) 5,000 iu PO Q DAY Qty: 0 RF: 0 Coenzyme Q10 (#COQ(10)10) 100 mg PO Q DAY Qty: 0 RF: 0 MELATONIN (#MELATONIN) 1 mg PO Q DAY Qty: 0 RF: 0 PRASTERONE (DHEA) (#DHEA) 40 mg PO Q DAY Qty: 0 RF: 0 Pregnenolone (#PREGNENOLONE) 50 mg PO Q DAY Qty: 0 RF: 0 TESTOSTERONE (#TESTOSTERONE) 150 mg Topical Q DAY Qty: 0 RF: 0 [[facility] ESSENTIAL] BID Qty: 0 RF: 0 [[facility]MC MENS FORMULA] Q DAY Qty: 0 RF: 0 pramipexole 0.5 mg Tablet 0.5 mg PO TID RF: 0 levothyroxine 50 mcg Tablet 50 mcg PO DAILY RF: 0 carbidopa-levodopa 25-100 mg Tablet See Rx Instructions .ROUTE .COMPLEX RF: 0 carbidopa-levodopa 25-100 mg Tablet Extended Release 1 tab PO QID RF: 0 doxazosin 8 mg Tablet 8 mg PO DAILY RF: 0 furosemide 20 mg Tablet 20 mg PO DAILY Qty: 0 RF: 0 Follow up/Referrals: Charlie Barillas MD [Non-Staff] - 1 Week Diet/Activity/Treatments Diet: Diet as Tolerated, Low-fat, Low-sodium and Low-cholesterol Activity: Activity as tolerated with forward wheeled walker at all times and physical and occupational therapy Visit Report/Discharge Packet Instructions: The Mediterranean Diet and Good Health, DI for Transient Ischemic Attack, DI for Viral Upper Respiratory Infection -- Adult, DI for Viral Syndrome Visit Report Forms: Patient Portal/API, Stroke Signs & Symptoms Discharge Data Attending Provider: Nirmal Sullivan Admit Date/Time: 10/06/19 22:44 Quality VTE Deep Vein Thrombosis/Pulmonary Embolism Present on Admission: No
[2019-10-08] MEDS: ALBUTEROL/IPRATROPIUM 3 ML AMPUL INH (11:29)
[2019-10-08 11:30] VITALS: PULSE 87; RESP 18; O2SAT 94
[2019-10-08 12:00] VITALS: BP 138/86; PULSE 83; RESP 20; TEMP 37.2; O2SAT 94
[2019-10-08] MEDS: SODIUM CHLORIDE NASAL SPRAY 1 SPRAY NASAL (12:02)
--- NOTE | 2019-10-08 12:34 | CM.DPC ---
Addendum entered by Ana Lucas R.N. 10/08/19 13:11: Dr. Best in talking to patient and . Went ahead and called [facility], just in case, to get a quote for daily rate private pay. Daily rate is $375.00, and they require 30 days down deposit, which is $[phone] up front, which would be reimbursed if discharged sooner. Stated that [facility] in [place] charges $325.00 daily rate for private room, and semi-private room is $250.00. Patient would still need to make down payment. went to have lunch, will touch base today regarding decision. Original Note: DCP Cont: Attempted to meet with patient and . Patient was in the process of having bladder scan. Was able to see getting ready to go into patient's room. Introduced self and role. Briefly mentioned home health, but mentioned she wants to talk to the doctor before making any decisions. Let Dr. Best know, and she is in room seeing patient and . Plan is for discharge home today. P: DCP will attempt to meet with patient and again, to see if they are interested in home health. Patient lives between two homes, [place] and [place]. Would need to find out which home that patient is going to upon discharge. Ana Lucas RN/Security Officer
--- NOTE | 2019-10-08 12:41 | PC.NURSE ---
Addendum entered by Eric Carpio R.N. 10/08/19 14:32: REVIEWED ALL DC INSTRUCTIONS W/ PATIENT AND SPOUSE. INSTRUCTED ON NEW SCRIPTS AND LAST DOSES OF ALL HM MEDS. REVIEWED HANDOUTS AND S/SX'S WARRANTING CALL TO , OR 911. PHYSICAL THERAPY HAS ISSUED WALKER. RT HAS REVIEWED USE OF INHALER AND SPACER. OT ASSISTING PATIENT TO DRESS. SPOUSE SAYS SHE HAS BEEN DRIVING WITHOUT ANY DIFFICULTY WITH HER BROKEN ARM, AND HAS NOT BEEN USING PAIN MEDS TODAY, SO SHE WILL NOT BE IMPAIRED WHEN SHE DRIVES. STATES SOON SHE GETS HOME SHE PLANS TO TAKE HER MEDS, BUT SHE DOES NOT OUTWARDLY SEEM DISTRESSED OR PAINFUL. Original Note: PVR 17 CC'S.
--- NOTE | 2019-10-08 14:36 | CM.DPC ---
[facility] Cont: Dr. Best had spoken to patient and . Their concern was having someone at the house to assist patient up the two steps into the home. Had already spoken to patient and about potential skilled, but stated, we really don't want to go that route, home health would be the best choice. stated that their son, Rufus is at the house, and can assist patient getting up the stairs. Went ahead and retrieved their [employer] address. Discussed home health choices, [place], [place], and family stated no preference. Called and talked to Beronica at [facility] [place]. Stated that patient could be seen Thursday or Thursday, but could be sooner. Suggested that this behavioral health case manager fax over information to her, face to face, orders, face sheet, and discharge summary. Went ahead and faxed over to Beronica. Beronica called back and stated that Erin is working at the [employer] office, and can go ahead and fax ordes over. Stated he could potentially be seen before Thursday. Went ahead and faxed information to Erin, Beronica had given this operations planner her fax number. Gave patient and a [facility] [place] home health brochure, in case they have any questions. Gave a [employer] book serving [facility], as well, showing private care giving agencies. Patient is currently working with An, O.T. P: Patient should be discharged home with [facility]. Put in for nursing, P.T, and O. Ana Lucas RN/Professor Of Exercise Science
--- NOTE | 2019-10-08 14:53 | OT.IP.TRT ---
Occupational Therapy Treatment Note M2 OT-IP Current Condition Start: 10/07/19 17:00 Freq: Status: Active Protocol: Document 10/08/19 09:20 PJM (Rec: 10/08/19 09:49 PJM [id number]) Occupational Therapy Current Condition Current Condition Evaluation Date 10/08/19 Treatment Diagnosis decr'd self care, mobility, cognition with DX of PNA w/ encephalopathy vs TIA Post Operative Precautions Other Precautions fall risk, impulsive, bed/ chair alarm M3 OT- IP Subjective and Pain Start: 10/07/19 17:00 Freq: Status: Active Protocol: Document 10/08/19 14:53 PJM (Rec: 10/08/19 15:14 PJM [id number]) OT- Subjective Occupational Therapy Visit Type Type Treatment Note Visit Start Time 14:20 Visit Stop Time 14:53 Total Visit Minutes [address] Best requesting additional OT tx as pt to be d/c'd home today. Pt's now here for education re: home safety and bathroom equipt options. Occupational Therapy Visit Comments Patient/Caregiver Goals to go home and get a good night's sleep OT Pain Assessment Pain Present Pain Present Denied Pain M4 OT- IP ADL's Start: 10/07/19 17:00 Freq: Status: Active Protocol: Document 10/08/19 14:53 PJM (Rec: 10/08/19 15:14 PJM [id number]) OT ADL-Dressing General Eval Upper Body Dressing Ability Standby Assistance Lower Body Dressing Ability Standby Assistance,Minimal Assistance Assistive Devices Dressing Assistive Devices Long Handled Shoe Horn Comments OT Dressing Comments Son to assist with new knee high RENEE hose. Recommend HH OT educate pt re: sock aid use. Long shoe horn provided to assist with tight slip on shoes. OT ADL-Toileting Comments OT Toileting Comments Provided education re: methods to increase height of toilet at home and recommend grab bar installation. OT ADL-Bathing Comments OT Bathing Comments Per , pt has walk in shower with built in seat and wall grab bar with hand held shower hose in upstairs master bath of [facility]. Son can provided SBA with transfers PRN M5 OT- IP IADL's Start: 10/07/19 17:00 Freq: Status: Active Protocol: Document 10/08/19 14:53 PJM (Rec: 10/08/19 15:14 PJ [id number]) OT-Instrumental Activities of Daily Living Deficits IADL Deficits Identified Deficits Home Safety Awareness Home Safety Comments Son and can assist PRN Medication Management Medication Management Caregiver Provides Supervision Medication Management Comments to supervise med management at home Money Management Money Management Caregiver Provides Supervision Money Management Comments to supervise financial aid administrator at home Meal Preparation Meal Preparation Caregiver Provides Assist Meal Preparation Comments family to assist Informatica Mdm Architect Informatica Mdm Architect Caregiver Provides Assist Informatica Mdm Architect Comments family to assist Driving Driving Comments Pt agreed not to drive at this time. M6 OT- IP Functional Cognition Start: 10/07/19 17:00 Freq: Status: Active Protocol: Document 10/08/19 14:53 INESSA (Rec: 10/08/19 15:14 PJ [id number]) Cognitive Factors Limiting Selfcare Function Cognitive Ability Level of Alertness Alert Attention Span Ability Capable of Focused Attention, Capable of Sustained Attention Ability to Follow Commands Able to Follow One Step Commands Memory Description Short Term Impaired Safety Awareness Decreased Recall of Precautions,Decreased Ability to Apply Precautions, Underestimates Need for Assistance Problem Solving Ability Unable to Identify Errors, Needs Assist to Identify Solutions Cognitive Comments Cognitive Assessment Comments Pt is not at cognitive baseline per . She states he had a good memory prior to this illness. M7 OT- IP Mobility and Balance Start: 10/07/19 17:00 Freq: Status: Active Protocol: Document 10/08/19 14:53 INESSA (Rec: 10/08/19 15:14 [facility] [id number]) OT-Transfer Assessment Sit to and From Stand Sit to and from Stand Contact Guard Assistance Transfers Transfer Ability Contact Guard Assistance Technique Transfer Destination Chair Transfer Technique Stand Step Pivot Comments Mobility Comments Pt needs reminders to use new FWW, mildly unsteady especially when backing up. OT- Balance Assessment Sitting Balance and Reactions Static Sitting Balance Ability Good Dynamic Sitting Balance Ability Good Standing Balance and Reactions Static Standing Balance Ability Fair Dynamic Standing Balance Ability Fair Comments Other Balance Tests/Deviations/Treatment with FWW : M9 OT- IP Assessment and Plan Start: 10/07/19 17:00 Freq: Status: Active Protocol: Document 10/08/19 14:53 PJSarahi (Rec: 10/08/19 15:14 [facility] [id number]) OT Summary Assessment and Plan Potential Rehabilitation Potential Good Summary Progress Towards Goals Safe For Discharge,Goals Met Assessment Summary All OT goals achieved for this admission. Pt plans to d/c home today to [facility] with 24 hr assist from (with broken arm in splint cast) and adult son. Provided education re: current cognitive deficits and recommendation for no driving. Also provided education re: fall reduction and bathroom safety equipt options. Pt will have OT services at d/c for further home safety assessment and ADL /IADL training. Frequency of Treatment Frequency Of Treatment Discharge Discharge Recommendations OT Discharge Recommendations Home with 24/7 Assist,Home Health Home Equipment Needs grab bars by toilet, toilet riser
== END 2019-10-08 15:10 | disposition home health service (06) ==
LOC: ED 22:15 → AC 22:44
PROVIDERS: Internal Medicine; Admitting Provider Nurse Practitioner Adult Health; Emergency Provider Emergency Medicine; Visit Provider Nurse Practitioner Adult Health
DX: J12.3 Human metapneumovirus pneumonia (principal); R29.818 Other symptoms and signs involving the nervous system; W18.31XA Fall on same level due to stepping on an object, initial encounter; G20 Parkinson's disease; N40.1 Benign prostatic hyperplasia with lower urinary tract symptoms; E03.9 Hypothyroidism, unspecified; E88.09 Other disorders of plasma-protein metabolism, not elsewhere classified; R79.89 Other specified abnormal findings of blood chemistry; G93.41 Metabolic encephalopathy
CPT/HCPCS: 36415; 70450; 70548; 70553; 71045; 80048; 80053; 80061; 80320; 80329; 81001; 81003; 82140; 82550; 82553; 83605; 83690; 83735; 84145; 84443; 84484; 85025; 85610; 85730; 87040; 87077; 87150; 87205; 87502; 93005; 93306; 94640; 94667; 94668; 94760; 94762; 96125; 96361; 96374; 96376; 97116; 97162; 97165; 97530; 97535; 99283; 99285; G0378; A9579; G0480; J1644